=== PATIENT | male | born 1940 | race Caucasian/White ===

== ENCOUNTER → 2016-11-02 | Outpatient (CLI) | payer OTHER ==
[~2016-11-02] MED LIST: ATEN-173 PO; CARB25TA12 PO; CIPR-255 PO; CYAN10005 PO; DXM/4 PO; LISI20TA3 PO; POLY335025 PO; PSYL0.524 PO; SNM/25100 PO; TAMS0.4C38 PO; TAMS0.4C59 PO; [UNRECOGNIZED DRUG - CODE] PO
[2016-11-02 10:05] LABS: BASO % 0.8 %; BASO ABS # 0.08 K/uL (0-0.2); COMPLETE YES; EOS % 1.4 %; HEMATOCRIT 48.4 % (42-52); IG% 0.2 %; LYMPH % 13.9 %; MEAN CORPUSCULAR HEMOGLOBIN 32.2 pg (25-34); MEAN CORPUSCULAR HGB CONC 36.2 g/dl (32-36); MEAN PLATELET VOLUME 8.7 fL (7.4-10.4); MONO % 7.5 %; NEUT % 76.2 %; PLATELET COUNT 458 K/uL (130-400); RED BLOOD COUNT 5.44 M/uL (4.7-6.1)
[2016-11-02 10:31] LABS: ALT/SGPT 15 U/L (12-78); AST/SGOT 8 U/L (15-37); BLOOD UREA NITROGEN 23 mg/dl (7-18); BUN/CREATININE RATIO 20.7 (10-20); CALCIUM 9.1 mg/dl (8.5-10.1); CARBON DIOXIDE 29 mmol/L (21-32); CHLORIDE 109 mmol/L (98-107); GLUCOSE 103 mg/dl (70-99); POTASSIUM 4.2 mmol/L (3.5-5.1); SODIUM 145 mmol/L (136-145)
[2016-11-02 10:34] LABS: ALB/GLOB RATIO 1.3 (0.9-2); ALKALINE PHOSPHATASE 59 U/L (45-117); CHOLESTEROL 157 mg/dl (0-200); CHOLESTEROL/HDL RATIO 2.8; HDL CHOLESTEROL 57 mg/dl; LDL CHOLESTEROL CALCULATED 91 mg/dl; TRIGLYCERIDES 46 mg/dl (0-150); VERY LOW DENSITY LIPOPROT CALC 9 mg/dl
== END | disposition home or self-care (01) ==
LOC: C.LAB 09:27
PROVIDERS: ATTEND Nurse Practitioner Family
DX: I10 Essential (primary) hypertension (principal); K21.9 Gastro-esophageal reflux disease without esophagitis; J45.909 Unspecified asthma, uncomplicated; E88.9 Metabolic disorder, unspecified

== ENCOUNTER 2016-11-05 13:34 | Inpatient (IN) | payer OTHER ==
[~2016-11-05] VITALS: Ht 172.7 cm; Wt 64.0 kg
[~2016-11-05 13:34] MED LIST changes: -CARB25TA12 PO; -CIPR-255 PO; -DXM/4 PO; -SNM/25100 PO; -TAMS0.4C38 PO
[2016-11-05] MEDS ORDERED: SODIUM CHLORIDE 0.9% 1000ML 500 ML IV STA (13:55)
[2016-11-05] MEDS ORDERED: IBUPROFEN 600 MG TAB PO STA (13:55)
[2016-11-05] MEDS ORDERED: ACETAMINOPHEN 500 MG TAB PO STA (13:55)
--- NOTE | 2016-11-05 14:03 | EMERGENCY ROOM VISIT NOTE ---
History Report prepared by Ephraim: Yen Valentino Under the Supervision of: Dr. Helio Frias M.D. First contact with patient: 13:47 Chief Complaint: NEURO SYMPTOMS Stated Complaint: NUMBING/PAIN IN BOTH ARMS History of Present Illness The patient is a 76 year old male who presents to the Emergency Room with complaints of worsening bilateral arm numbness over the past week. He currently rates his discomfort as a 10/10 in severity. Per the patient's granddaughter, the patient's left arm has been numb for awhile, but over the last week his numbness worsened and he has noticed right arm numbness from his elbow to his fingers. She notes that the patient has complained of some bilateral leg numbness, but notes that he can still ambulate. The patient's granddaughter notes that the patient associates nausea and abdominal pain with his symptoms today. She denies the patient having any recent fall or trauma. The patient notes neck pain today and states that when he was younger he had small injuries to his neck. He denies any history of stroke or previous NC. The patient denies any shortness of breath or chest pain. The patient denies taking anything for his pain today. Source of History: patient, family (granddaughter) Onset: past week Position: arm (bilateral) Symptom Intensity: 10/10 Quality: numbness Timing: worsening Associated Symptoms: + abdominal pain, + nausea, + neck pain, + numbness ( bilateral leg), No SOB, No chest pain Review of Systems See HPI for pertinent positives & negatives. A total of 10 systems reviewed and were otherwise negative. Past Medical & Surgical Medical Problems: (1) Altered mental status (2) Enlarged prostate (3) Headache (4) HTN (hypertension) (5) Hypertensive urgency (6) Muscle weakness of right upper extremity (7) Prostate cancer (8) Right upper extremity numbness Family History Patient reports no known family medical history. Social History Smoking Status: Never Smoker Marital Status: single Housing Status: lives alone Occupation Status: retired Current/Historical Medications Scheduled Atenolol (Tenormin), 25 MG PO BID Cyanocobalamin (Vitamin B-12), 1,000 MCG PO DAILY Lisinopril (Prinivil), 20 MG PO BID Polyethylene Glycol 3350 (Miralax), Unknown Dose PO DAILY Psyllium (Metamucil), 5 CAP PO DAILY Tamsulosin Hcl (Flomax), 0.4 MG PO DAILY [Col-rite], 100 MG PO BID Allergies Coded Allergies: No Known Allergies (Verified , 06/08/16) Physical Exam Vital Signs Date Time Temp Pulse Resp B/P Pulse Ox O2 Delivery O2 Flow Rate FiO2 11/05/16 17:01 85 21 168/105 11/05/16 16:41 188/166 11/05/16 15:56 96 19 183/123 94 Room Air 11/05/16 15:37 199/120 11/05/16 15:30 70 14 200/107 94 Room Air 11/05/16 14:30 36.6 79 190/120 94 Room Air 11/05/16 14:14 87 11/05/16 13:38 36.8 103 20 163/97 95 Room Air Physical Exam GENERAL: Patient is in no acute distress. HEENT: No acute trauma, normocephalic atraumatic, mucous membranes moist, no nasal congestion, no scleral icterus. NECK: No stridor, no adenopathy, no meningismus, trachea is midline. LUNGS: Clear to auscultation bilaterally, no wheeze, no rhonchi, breath sounds equal. HEART: Mildly tachycardic with a regular rhythm. ABDOMEN: Soft, nontender, bowel sounds positive, no hernias, no peritonitis. EXTREMITIES: No cyanosis or edema, full range of motion of all the joints without pain or difficulty, no signs for acute trauma. Strong radial pulses in both upper extremities, there seems to be some difficulty spreading the fingers of the left hand, symptoms in his arms worsen with pressure over the median nerve and with extreme wrist extension. NEUROLOGIC: Oriented x 3, no acute motor or sensory deficits, no focal weakness. No pronator drift or cerebellar dysfunction. SKIN: No rash, no jaundice, no diaphoresis. Medical Decision & Procedures ER Provider Diagnostic Interpretation: X ray results and stated below per my interpretation and radiologist interpretation. Other radiology results and stated below per my review and radiologist interpretation: CT HEAD WITHOUT CONTRAST (CT) CLINICAL HISTORY: Altered mental status and weakness. Bilateral arm pain. COMPARISON STUDY: 06/08/2016 TECHNIQUE: Axial CT of the brain is performed from the vertex to the skull base. IV contrast was not administered for this examination. CT DOSE: FINDINGS: No intra or extra-axial mass lesions are visualized. There is no CT evidence of acute cortical infarction. There is no evidence of midline shift. There is no acute hemorrhage. No calvarial fractures are visualized. There are patchy white matter hypodensities likely on a small vessel basis. There is no evidence of pathologic ventricular dilatation. There is persistent opacification of a left-sided ethmoid air cell. IMPRESSION: No acute intracranial findings Electronically signed by: Cheko Larson M.D. 11/05/2016 2:33 PM Dictated Date/Time: 11/05/2016 2:31 PM CHEST ONE VIEW PORTABLE CLINICAL HISTORY: Altered mental status. Weakness. COMPARISON STUDY: 06/08/2016 FINDINGS: The heart is at the upper limits of normal in size. There is no failure. There is no focal pulmonary consolidation. No pleural effusions are visualized.[ IMPRESSION: No active disease in the chest. Electronically signed by: Cheko Larson M.D. 11/05/2016 2:14 PM Dictated Date/Time: 11/05/2016 2:[address] DOSE: 1034.76 mGy.cm HISTORY: Neck pain. arm pain, left more than right TECHNIQUE: Multiaxial CT images of the cervical spine were performed and reformatted in the sagittal and coronal plane without the use of contrast. COMPARISON: None. FINDINGS: No fractures. No subluxation. Prevertebral soft tissues and the C1-C2 interval are intact. No pneumothorax. A 1.3 cm right thyroid nodule. Severe disc space narrowing at C5-C6 and C6-C7 with small endplate osteophytes. Mild central canal narrowing at C6-C7 due to the posterior disc osteophyte complex. There is also severe right-sided neural foraminal narrowing at C6-C7 and moderate right-sided neural foraminal narrowing at C5-C6. This is due to the uncovertebral hypertrophy IMPRESSION: No fractures within the cervical spine. Degenerative changes at C5-C6 and C6-7 as described above. Electronically signed by: Diego Funes M.D. 11/05/2016 2:37 PM Dictated Date/Time: 11/05/2016 2:32 PM Laboratory Results 11/05/16 14:15 Red Blood Count 5.43, Mean Corpuscular Volume 90.4, Mean Corpuscular Hemoglobin 30.9, Mean Corpuscular Hemoglobin Concent 34.2, Mean Platelet Volume 8.6, Neutrophils (%) (Auto) 81.1, Lymphocytes (%) (Auto) 8.8, Monocytes (%) (Auto) 7.8, Eosinophils (%) (Auto) 1.6, Basophils (%) (Auto) 0.5, Neutrophils # (Auto) 8.29, Lymphocytes # (Auto) 0.90, Monocytes # (Auto) 0.80, Eosinophils # (Auto) 0.16, Basophils # (Auto) 0.05 11/05/16 14:15 Test 11/05/16 14:15 11/05/16 15:20 White Blood Count 10.22 K/uL (4.8-10.8) Red Blood Count 5.43 M/uL (4.7-6.1) Hemoglobin 16.8 g/dL (14.0-18.0) Hematocrit 49.1 % (42-52) Mean Corpuscular Volume 90.4 fL (80-100) Mean Corpuscular Hemoglobin 30.9 pg (25-34) Mean Corpuscular Hemoglobin Concent 34.2 g/dl (32-36) Platelet Count 452 K/uL (130-400) Mean Platelet Volume 8.6 fL (7.4-10.4) Neutrophils (%) (Auto) 81.1 % Lymphocytes (%) (Auto) 8.8 % Monocytes (%) (Auto) 7.8 % Eosinophils (%) (Auto) 1.6 % Basophils (%) (Auto) 0.5 % Neutrophils # (Auto) 8.29 K/uL (1.4-6.5) Lymphocytes # (Auto) 0.90 K/uL (1.2-3.4) Monocytes # (Auto) 0.80 K/uL (0.11-0.59) Eosinophils # (Auto) 0.16 K/uL (0-0.5) Basophils # (Auto) 0.05 K/uL (0-0.2) RDW Standard Deviation 47.3 fL (36.4-46.3) RDW Coefficient of Variation 14.3 % (11.5-14.5) Immature Granulocyte % (Auto) 0.2 % Immature Granulocyte # (Auto) 0.02 K/uL (0.00-0.02) Prothrombin Time 11.0 SECONDS (9.0-12.0) Prothromb Time International Ratio 1.0 (0.9-1.1) Activated Partial Thromboplast Time 32.5 SECONDS (21.0-31.0) Partial Thromboplastin Ratio 1.3 Anion Gap 6.0 mmol/L (3-11) Estimated GFR () 74.7 Estimated GFR (Non- 64.4 BUN/Creatinine Ratio 19.0 (10-20) Calcium Level 8.9 mg/dl (8.5-10.1) Magnesium Level 2.5 mg/dl (1.8-2.4) Total Bilirubin 0.7 mg/dl (0.2-1) Aspartate Amino Transf (AST/SGOT) 11 U/L (15-37) Alanine Aminotransferase (ALT/SGPT) 18 U/L (12-78) Alkaline Phosphatase 68 U/L (45-117) Troponin I < 0.015 ng/ml (0-0.045) Total Protein 6.8 gm/dl (6.4-8.2) Albumin 3.9 gm/dl (3.4-5.0) Globulin 2.9 gm/dl (2.5-4.0) Albumin/Globulin Ratio 1.3 (0.9-2) Thyroid Stimulating Hormone (TSH) 1.930 uIu/ml (0.300-4.500) Urine Color YELLOW Urine Appearance CLEAR (CLEAR) Urine pH 8.5 (4.5-7.5) Urine Specific Gray 1.013 (1.000-1.030) Urine Protein NEG (NEG) Urine Glucose (UA) NEG (NEG) Urine Ketones NEG (NEG) Urine Occult Blood NEG (NEG) Urine Nitrite NEG (NEG) Urine Bilirubin NEG (NEG) Urine Urobilinogen NEG (NEG) Urine Leukocyte Esterase NEG (NEG) Laboratory results reviewed by me. Medications Administered Medications (Trade) Dose Ordered Sig/Beau Route Start Time Stop Time Status Last Admin Dose Admin Sodium Chloride (Nss 1000ml) 500 ml @ 999 mls/hr Q31M STAT IV 11/05/16 13:55 11/05/16 14:25 DC 11/05/16 13:55 999 MLS/HR Acetaminophen (Tylenol Tab) 1,000 mg NOW STAT PO 11/05/16 13:55 11/05/16 13:58 DC 11/05/16 14:52 1,000 MG Hydralazine HCl (HydrALAZINE INJ) 10 mg NOW STAT IV 11/05/16 15:28 11/05/16 15:29 DC 11/05/16 15:35 10 MG Labetalol HCl (Normodyne IV) 20 mg NOW STAT IV 11/05/16 16:27 11/05/16 16:37 DC 11/05/16 16:27 20 MG ECG Indication: other (numbness) Rate (beats per minute): 84 Rhythm: normal sinus Findings: no acute ischemic change, no ectopy ED Course 1346: The patient was evaluated in room A12B. A complete history and physical exam was performed. 1355: Ordered Ibuprofen 600 mg PO, Tylenol Tab 1000 mg PO, Sodium Chloride 500 ml @ 999 mls/hr IV. 1528: Ordered Hydralazine HCl 10 mg IV. 1534: I reevaluated the patient and he is resting comfortably. I discussed the exam findings with him and his family and I discussed the treatment plan. They verbalized complete understanding and agreement. The patient will be evaluated for further treatment. 1545: I discussed the patients case with Dr. Aaron [facility]. He is going to evaluate the patient for further treatment Medical Decision The patient is a 76 year old male who presents to the ED with complaints of bilateral arm numbness. Differential diagnoses considered include carpal tunnel syndrome, nerve impingement, cervical disc disease, stroke, cardiac ischemia, dysrhythmia, anemia, electrolyte imbalance. There is no leukocytosis or concerning anemia. No significant electrolyte abnormality, kidney failure, hepatitis. The patient appears to be in a euthyroid state. There is no coagulopathy. EKG shows a sinus rhythm, no acute ischemia. Cardiac enzyme testing times one is not suggestive of acute cardiac injury. Chest film shows no mediastinal widening, pneumonia or pneumothorax. Brain CT shows no acute bleed or mass effect. C-spine CT does show arthritis and disc space narrowing with some foraminal narrowing. On exam, the patient did have some weakness in his left hand, especially his left ulnar nerve. He did not have any pronator drift or cerebellar dysfunction. He was able to ambulate without falling or being off balance. There was no facial droop. The patient was given oral Motrin and oral Tylenol for pain. He received IV saline. As his blood pressure kept climbing, he was given a dose of IV hydralazine. The patient may have nerve impingement. Certainly, stroke is a consideration as well. He is persistently hypertensive here and has now required some IV medications to try to help control his blood pressure. With his complaints and findings, admission/observation for further workup was felt warranted. I did speak with the patient and with his granddaughter. I spoke with case management. The on-call hospitalist was consulted. Consults Time Called: [id number] Consulting Physician: TAHIRA Fraga Returned Call: [phone] I discussed the patients case with TAHIRA Fraga. He is going to evaluate the patient for further treatment Impression Primary Impression: HTN (hypertension) Additional Impressions: Stroke-like symptoms Arm numbness Scribe Attestation The scribe's documentation has been prepared under my direction and personally reviewed by me in its entirety. I confirm that the note above accurately reflects all work, treatment, procedures, and medical decision making performed by me. Departure Information Dispostion Being Evaluated By Hospitalist Referrals Palmer Alicia III, CRNP (PCP) Problem Qualifiers
--- NOTE | 2016-11-05 14:16 | DIAGNOSTIC IMAGING REPORT ---
CHEST ONE VIEW PORTABLE CLINICAL HISTORY: Altered mental status. Weakness. COMPARISON STUDY: 06/08/2016 FINDINGS: The heart is at the upper limits of normal in size. There is no failure. There is no focal pulmonary consolidation. No pleural effusions are visualized.[ IMPRESSION: No active disease in the chest. Electronically signed by: Cheko Larson M.D. 11/05/2016 2:14 PM Dictated Date/Time: 11/05/2016 2:14 PM
[2016-11-05 14:27] LABS: BASO % 0.5 %; BASO ABS # 0.05 K/uL (0-0.2); COMPLETE YES; EOS % 1.6 %; HEMATOCRIT 49.1 % (42-52); IG% 0.2 %; LYMPH % 8.8 %; MEAN CELL VOLUME 90.4 fL (80-100); MEAN CORPUSCULAR HEMOGLOBIN 30.9 pg (25-34); MEAN CORPUSCULAR HGB CONC 34.2 g/dl (32-36); MEAN PLATELET VOLUME 8.6 fL (7.4-10.4); MONO % 7.8 %; NEUT % 81.1 %; PLATELET COUNT 452 K/uL (130-400); RED BLOOD COUNT 5.43 M/uL (4.7-6.1); WHITE BLOOD COUNT 10.22 K/uL (4.8-10.8)
--- NOTE | 2016-11-05 14:35 | DIAGNOSTIC IMAGING REPORT ---
CT HEAD WITHOUT CONTRAST (CT) CLINICAL HISTORY: Altered mental status and weakness. Bilateral arm pain. COMPARISON STUDY: 06/08/2016 TECHNIQUE: Axial CT of the brain is performed from the vertex to the skull base. IV contrast was not administered for this examination. CT DOSE: FINDINGS: No intra or extra-axial mass lesions are visualized. There is no CT evidence of acute cortical infarction. There is no evidence of midline shift. There is no acute hemorrhage. No calvarial fractures are visualized. There are patchy white matter hypodensities likely on a small vessel basis. There is no evidence of pathologic ventricular dilatation. There is persistent opacification of a left-sided ethmoid air cell. IMPRESSION: No acute intracranial findings Electronically signed by: Cheko Larson M.D. 11/05/2016 2:33 PM Dictated Date/Time: 11/05/2016 2:31 PM
[2016-11-05] MEDS ORDERED: TAMS0.4C38 PO (14:39)
--- NOTE | 2016-11-05 14:39 | DIAGNOSTIC IMAGING REPORT ---
CERVICAL SPINE CT CT DOSE: 1034.76 mGy.cm HISTORY: Neck pain. arm pain, left more than right TECHNIQUE: Multiaxial CT images of the cervical spine were performed and reformatted in the sagittal and coronal plane without the use of contrast. COMPARISON: None. FINDINGS: No fractures. No subluxation. Prevertebral soft tissues and the C1-C2 interval are intact. No pneumothorax. A 1.3 cm right thyroid nodule. Severe disc space narrowing at C5-C6 and C6-C7 with small endplate osteophytes. Mild central canal narrowing at C6-C7 due to the posterior disc osteophyte complex. There is also severe right-sided neural foraminal narrowing at C6-C7 and moderate right-sided neural foraminal narrowing at C5-C6. This is due to the uncovertebral hypertrophy IMPRESSION: No fractures within the cervical spine. Degenerative changes at C5-C6 and C6-7 as described above. Electronically signed by: Diego Funes M.D. 11/05/2016 2:37 PM Dictated Date/Time: 11/05/2016 2:32 PM
[2016-11-05 14:54] LABS: ALB/GLOB RATIO 1.3 (0.9-2); ALKALINE PHOSPHATASE 68 U/L (45-117); ALT/SGPT 18 U/L (12-78); AST/SGOT 11 U/L (15-37); BLOOD UREA NITROGEN 21 mg/dl (7-18); CALCIUM 8.9 mg/dl (8.5-10.1); CARBON DIOXIDE 28 mmol/L (21-32); CHLORIDE 110 mmol/L (98-107); GLUCOSE 138 mg/dl (70-99); MAGNESIUM 2.5 mg/dl (1.8-2.4); POTASSIUM 4.3 mmol/L (3.5-5.1); SODIUM 144 mmol/L (136-145)
[2016-11-05] MEDS ORDERED: HydrALAZINE HCL 20 MG/ML VIAL IV STA (15:28)
[2016-11-05 15:38] LABS: URINE APPEARANCE CLEAR (CLEAR); URINE BILIRUBIN NEG (NEG); URINE COLOR YELLOW; URINE NITRITE NEG (NEG); URINE PH 8.5 (4.5-7.5); URINE SPECIFIC GRAVITY 1.013 (1.000-1.030); UROBILINOGEN NEG (NEG); ZZUR CULT IF INDIC CLEAN CATCH NO
[2016-11-05 15:44] LABS: MANUAL MICROSCOPIC REQUIRED? NO; REVIEW REQ? NO
[2016-11-05] MEDS ORDERED: LABETALOL HCL IV 5 MG/ML 20ML IV STA (16:27)
[2016-11-05] MEDS ORDERED: ONDANSETRON INJ 2 MG/ML 2 ML VIAL IV PRN (17:30)
[2016-11-05] MEDS ORDERED: AMLODIPINE BESYLATE 5 MG TAB PO SCH (17:30)
--- NOTE | 2016-11-05 18:26 | History and Physical ---
History & Physical Date & Time of Service: Nov 05, 2016 at 16:17 Chief Complaint: Numbing/Pain In Both Arms Primary Care Physician: Palmer Alicia III, CRNP History of Present Illness Source: patient, family ([place]), clinic records, hospital records History taken with granddaughter then patient using medical lab technologist and his outpatient notes. 76 yo with Parkinson's disease presents with altered mental status, acute progressive motor and sensory loss in his right upper extremity starting in his hand over the last week and pain from elbow to finger tips. Today he also had nausea and vomiting with associated headache. He has chronic urinary incontinence and urgency which he puts down to his Hx of prostate cancer s/p external beam radiation. He complains of intermittent constipation requiring laxatives and frequently feels that he needs to have a bowel movement but is unable. In the ER he was noted to have elevated BP and treated with IV hydralazine 10 mg. On review of allscripts he was under the care of Dr Burleson for suspected Parkinson's disease and left arm numbness/weakness. Negative workup for left arm symptoms but apparently improve with physical therapy. Recommended he start on Sinemet in June although he refused at that time saying "he is just old". Past Medical/Surgical History Medical Problems: (1) Enlarged prostate Status: Resolved (2) HTN (hypertension) Status: Chronic (3) Prostate cancer Permanent Comment: Increased urinary symptoms and subsequent finding of elevated PSA Status post biopsies 01/25/2011 biopsy stage T2a Yann grade 3+3 Active surveillance Repeat biopsy 06/25/2012 biopsy positive [place] 3+3 biopsy stage T2b Status post completion of radiation therapy utilizing IMRT/IGRT completed 2012 received 7800 cGy Status: Resolved Family History Patient reports no known family medical history. Social History Smoking Status: Never Smoker Marital Status: single Housing status: lives with family (struggling to cope given lack of mobility issues) Occupational Status: retired Multi-Drug Resistant Organisms History of MDRO: No Allergies Coded Allergies: No Known Allergies (Verified , 06/08/16) Home Medications Scheduled Atenolol (Tenormin), 25 MG PO BID Cyanocobalamin (Vitamin B-12), 1,000 MCG PO DAILY Lisinopril (Prinivil), 20 MG PO BID Polyethylene Glycol 3350 (Miralax), Unknown Dose PO DAILY Psyllium (Metamucil), 5 CAP PO DAILY Tamsulosin Hcl (Flomax), 0.4 MG PO DAILY [Col-rite], 100 MG PO BID Physical Exam Vital Signs Date Time Temp Pulse Resp B/P Pulse Ox O2 Delivery O2 Flow Rate FiO2 11/05/16 15:56 96 19 183/123 94 Room Air 11/05/16 15:37 199/120 11/05/16 15:30 70 14 200/107 94 Room Air 11/05/16 14:30 36.6 79 190/120 94 Room Air 11/05/16 14:14 87 11/05/16 13:38 36.8 103 20 163/97 95 Room Air General Appearance: no apparent distress, + pertinent finding (appears malnourished) Head: normocephalic, atraumatic Eyes: EOMI, + pertinent finding Respiratory/Chest: chest non-tender, lungs clear, normal breath sounds, no respiratory distress, no accessory muscle use Cardiovascular: regular rate, rhythm, no murmur Abdomen/GI: normal bowel sounds, non tender, soft Back: no CVA tenderness Extremities/Musculoskelatal: no calf tenderness, normal capillary refill Skin: normal color, warm/dry, no rash NEUROLOGICALLY: Awake alert and oriented. Blank facies Cranial nerves: Chronic lateral gaze of right eye from previous foreign object in that eye with eyelid droop (since as per granddaughter) Left EOMI intact, left pupil reactive, no vision on right eye Denies facial numbness Expect for eyelid as previous mentioned no other facial droop Hearing not assessed uvula central tongue movements intact SCM TPZ intact Numbness of all of his tongue Appears to have move his limbs better when he is not concentrating Upper limbs: Mild increased tone in upper extremities b/l Left: (C5) shoulder abduction 3, (C6) elbow flex 4, (radial) wrist ext 3 (C7) elbow ext 4, (radial) wrist flex 3 (C8) finger flex 4, (T1, ulna) finger abduct 2, (median) thumb opposition 3 Right: (C5) shoulder abduction 3, (C6) elbow flex 4, (radial) wrist ext 4 (C7) elbow ext 4+, (radial) wrist flex 4 (C8) finger flex 4, (T1, ulna) finger abduct 3, (median) thumb opposition 3 Hyperreflexic biceps b/l C4-T1 sensation numbness worse on right compared with left. C4 pain distribution on neck rotation and flexion Lower limbs: Normal tone B/l hip flex 4, knee flex/ext 4+, Ankle dorsiflex/plantarflex 5 Plantars downgoing L2-S2 sensation intact b/l Speech: dysphonia present, no dysarthria (although language barrier makes this difficult to assess) Cerebellar - significant slowing of dysdiadochokinesia b/l, stooped shuffling gait Diagnostics Laboratory Results Results Past 24 Hours Test 11/05/16 14:15 11/05/16 15:20 Range/Units White Blood Count 10.22 4.8-10.8 K/uL Red Blood Count 5.43 4.7-6.1 M/uL Hemoglobin 16.8 14.0-18.0 g/dL Hematocrit 49.1 42-52 % Mean Corpuscular Volume 90.4 80-100 fL Mean Corpuscular Hemoglobin 30.9 25-34 pg Mean Corpuscular Hemoglobin Concent 34.2 32-36 g/dl Platelet Count 452 130-400 K/uL Mean Platelet Volume 8.6 7.4-10.4 fL Neutrophils (%) (Auto) 81.1 % Lymphocytes (%) (Auto) 8.8 % Monocytes (%) (Auto) 7.8 % Eosinophils (%) (Auto) 1.6 % Basophils (%) (Auto) 0.5 % Neutrophils # (Auto) 8.29 1.4-6.5 K/uL Lymphocytes # (Auto) 0.90 1.2-3.4 K/uL Monocytes # (Auto) 0.80 0.11-0.59 K/uL Eosinophils # (Auto) 0.16 0-0.5 K/uL Basophils # (Auto) 0.05 0-0.2 K/uL RDW Standard Deviation 47.3 36.4-46.3 fL RDW Coefficient of Variation 14.3 11.5-14.5 % Immature Granulocyte % (Auto) 0.2 % Immature Granulocyte # (Auto) 0.02 0.00-0.02 K/uL Sodium Level 144 136-145 mmol/L Potassium Level 4.3 3.5-5.1 mmol/L Chloride Level 110 98-107 mmol/L Carbon Dioxide Level 28 21-32 mmol/L Anion Gap 6.0 3-11 mmol/L Blood Urea Nitrogen 21 7-18 mg/dl Creatinine 1.10 0.60-1.40 mg/dl Estimated GFR () 74.7 Estimated GFR (Non- 64.4 BUN/Creatinine Ratio 19.0 10-20 Random Glucose 138 70-99 mg/dl Calcium Level 8.9 8.5-10.1 mg/dl Magnesium Level 2.5 1.8-2.4 mg/dl Total Bilirubin 0.7 0.2-1 mg/dl Aspartate Amino Transf (AST/SGOT) 11 15-37 U/L Alanine Aminotransferase (ALT/SGPT) 18 12-78 U/L Alkaline Phosphatase 68 45-117 U/L Troponin I < 0.015 0-0.045 ng/ml Total Protein 6.8 6.4-8.2 gm/dl Albumin 3.9 3.4-5.0 gm/dl Globulin 2.9 2.5-4.0 gm/dl Albumin/Globulin Ratio 1.3 0.9-2 Thyroid Stimulating Hormone (TSH) 1.930 0.300-4.500 uIu/ml Urine Color YELLOW Urine Appearance CLEAR CLEAR Urine pH 8.5 4.5-7.5 Urine Specific Curtis 1.013 1.000-1.030 Urine Protein NEG NEG Urine Glucose (UA) NEG NEG Urine Ketones NEG NEG Urine Occult Blood NEG NEG Urine Nitrite NEG NEG Urine Bilirubin NEG NEG Urine Urobilinogen NEG NEG Urine Leukocyte Esterase NEG NEG Diagnostic Radiology CERVICAL SPINE CT FINDINGS: No fractures. No subluxation. Prevertebral soft tissues and the C1-C2 interval are intact. No pneumothorax. A 1.3 cm right thyroid nodule. Severe disc space narrowing at C5-C6 and C6-C7 with small endplate osteophytes. Mild central canal narrowing at C6-C7 due to the posterior disc osteophyte complex. There is also severe right-sided neural foraminal narrowing at C6-C7 and moderate right-sided neural foraminal narrowing at C5-C6. This is due to the uncovertebral hypertrophy IMPRESSION: No fractures within the cervical spine. Degenerative changes at C5-C6 and C6-[address] HEAD WITHOUT CONTRAST (CT) No intra or extra-axial mass lesions are visualized. There is no CT evidence of acute cortical infarction. There is no evidence of midline shift. There is no acute hemorrhage. No calvarial fractures are visualized. There are patchy white matter hypodensities likely on a small vessel basis. There is no evidence of pathologic ventricular dilatation. There is persistent opacification of a left-sided ethmoid air cell. IMPRESSION: No acute intracranial findings CXR normal EKG Normal sinus rhythm Possible Left atrial enlargement Borderline ECG When compared with ECG of 08-JUN-2016 12:12, No significant change was found Impression Assessment and Plan 76 yo with Parkinson's disease presents with acute progressive motor and sensory loss in his right upper extremity starting in his hand over the last week and nausea, vomiting and headache over the past day. Altered mental state - appears almost back to his baseline as per granddaughter Hypertensive Urgency - possible cause of his headache, N&V - Hydralazine given by ER physician. Due to ongoing headache on lying down in the ER with BP 210/105 I added a stat dose of labetalol. - Add amlodipine 5 mg (give extra dose now), increase atenolol from 25 to 50mg BID, continue lisinopril 20 mg - will need orthostatics after BP controlled due to concurrent Parkinson's disease to make sure no orthostasis Right arm numbness and motor weakness - unclear etiology - CT shows - mild central canal narrowing C6-C7, severe right C6/7 neural foraminal narrowing at and moderate right C5-6 neural foraminal narrowing due to uncovertebral hypertrophy. - No acute findings on CT. We will initially get a MRI c-spine to assess his chronic radiculopathy and determine possible need for acute decompression.His acute right sided symptoms are similar to his chronic left sided symptoms which was investigated with a relatively normal EMG. His symptoms are also multiple levels not mentioned on the CT. Will consult neurology before getting an MRI brain given previous extensive negative workup I do not feel his symptoms are stroke related. - Consult neurology, Dr Burleson Parkinson's Disease - suspect above may be related to parkinson's. Not yet had trial Sinemet. - start Sinemet in the morning and reassess. - Consult neurology as above LLQ tenderness on examination with nausea and vomiting today - Rectal examination showed orange stool, negative for fecal Hemoccult blood - Abdo x-ray to assess for constipation higher up and obstruction. - NPO pending Abdo XR, if no sign of obstruction he can eat and drink as able with aspiration precautions. - Speech eval tomorrow Thyroid nodule incidental on CT c-spine - 1.5 cm right sided, will US to assess echogenicity and size further to determine need for FNA. - TSH normal Tongue numbness - chronic sialorrhea vs. oral thrush on examination, will treat with nystatin and oral mouth care VTE Prophylaxis - lovenox 40 mg SQ daily Disposition - admit to telemetry as may need IV beta blockers overnight and to assess for A fib although I do not feel this is stroke related at this time. Will need PT, OT and discharge planning due to concerns raised by his granddaughter they are not coping well at home. Level of Care Telemetry Resuscitation Status FULL RESUSCITATION VTE Prophylaxis VTE Risk Assessment Done? Y/N: Yes Risk Level: Moderate Given or contraindicated: Enoxaparin (Lovenox)SQ Additional Copies To Palmer Alicia III, CRNP Resident Tracking Resident Involvement: Resident Care Provided Care Provided: Adult Hospital Medicine
[2016-11-05 18:29] LABS: PARTIAL THROMBOPLASTIN RATIO 1.3
[2016-11-05 18:33] VITALS: BP 167/91; PULSE 74; TEMP 36.5; Ht 172.7 cm; Wt 64.0 kg
--- NOTE | 2016-11-05 19:07 | Progress Note ---
Progress Note Date of Service Nov 05, 2016. Progress Note Resident Physician Supervision Note: I interviewed and examined the patient. Discussed with Dr. Crane and agree with findings and plan as documented in the note. Any exceptions or clarifications are listed here: [None] please refer to actual H&P for further details on my exam, the patient has more weakness in left hand, muscle wasting found DTR to be hyper-reflexive both upper and lower extremities, 3/4 shuffled gain, no loss of balance seen - Bilateral upper extremity weakness and numbness, hyper-reflexia, muscle wasting left hand certainly feel that Cervical spine MRI is warranted to look for a cause of these findings consult neurology to see tomorrow for further recommendations - Hypertensive urgency: use Labetalol PRN continue lisinopril 20mg increase Atenolol to 50mg BID add Norvasc 5mg daily follow BP for appropriate response Documented By: Fabiano Aaron
[2016-11-05 20:00] VITALS: O2SAT 94
[2016-11-05] MEDS: ACETAMINOPHEN 325 MG TAB PO SCH (20:07)
[2016-11-05] MEDS: LISINOPRIL 20 MG TAB PO SCH (20:47)
[2016-11-05] MEDS: ENOXAPARIN 40 MG/0.4 ML SYR SC SCH (20:47)
[2016-11-05 20:57] VITALS: BP 108/67; PULSE 65; O2SAT 97
[2016-11-05] MEDS: NYSTATIN SUSP 500,000 U/5 ML UDC PO SCH (21:00)
--- NOTE | 2016-11-05 22:04 | DIAGNOSTIC IMAGING REPORT ---
ULTRASOUND OF THE THYROID GLAND CLINICAL HISTORY: Thyroid nodule. COMPARISON STUDY: CT scan of cervical spine dated 11/05/2016. TECHNIQUE: Real-time, grayscale, and color flow sonography of the thyroid gland is performed utilizing a high-frequency linear transducer. Images are reviewed in the transverse and longitudinal planes. FINDINGS: Right lobe: The right lobe of the thyroid gland is normal in size and homogeneous in echotexture, measuring 5.0 x 2.2 x 2.0 cm. An almost completely cystic nodule in the midpole measures 1.5 x 1.2 x 1.3 cm. Left lobe: The left lobe of the thyroid gland is normal in size and homogeneous in echotexture, measuring 5.0 x 2.1 x 1.8 cm. Isthmus: The thyroid isthmus is normal in appearance measuring 0.5 cm in AP diameter. IMPRESSION: 1. The thyroid gland is normal in size and echotexture. 2. A 1.5 cm nodule in the right thyroid lobe is nearly completely cystic. A 6-12 month sonographic follow-up is recommended for reassessment. Electronically signed by: Helio Francis M.D. 11/05/2016 10:02 PM Dictated Date/Time: 11/05/2016 9:59 PM
--- NOTE | 2016-11-05 22:28 | DIAGNOSTIC IMAGING REPORT ---
ABDOMEN 2 VIEWS CLINICAL HISTORY: Generalized abdominal pain. FINDINGS: Supine and erect abdominal radiograph are correlated with abdominal CT dated 09/30/2015. There is a nonobstructed abdominal bowel gas pattern noting moderate colonic fecal retention. No evidence of intraperitoneal free air is seen. Numerous phleboliths are identified in the pelvis. Surgical clips are noted in the prostate. The skeletal structures are osteopenic. Mild spondylotic change is noted in the lumbosacral spine. The lung bases are clear as imaged. IMPRESSION: Nonobstructed abdominal bowel gas pattern noting moderate constipation. Electronically signed by: Helio Francis M.D. 11/05/2016 10:26 PM Dictated Date/Time: 11/05/2016 10:25 PM
[2016-11-05] MEDS: SODIUM CHLORIDE 0.45% 1000ML 1,000 ML IV SCH (22:36)
[2016-11-05 23:17] VITALS: BP 158/83; PULSE 69; TEMP 36.6; O2SAT 94
--- NOTE | 2016-11-05 23:18 | DIAGNOSTIC IMAGING REPORT ---
MRI OF THE CERVICAL SPINE WITHOUT IV CONTRAST CLINICAL HISTORY: Cervical radiculopathy. COMPARISON STUDY: CT scan of the cervical spine performed the same day 11/05/2016. TECHNIQUE: MRI of the cervical spine is performed utilizing various T1 and T2-weighted sequences in the axial and sagittal planes. IV contrast was not administered for this examination. The examination is modestly degraded by motion artifact. FINDINGS: Cervical spine: Vertebral body height and alignment are maintained throughout the cervical spine. Marrow signal intensity is slightly heterogeneous. No destructive bony lesion is seen. The atlantodental articulation appears preserved. The spinous processes are intact. Chronic degenerative endplate changes noted at C5-C6. Tiny hemangiomas are suspected in the bodies of T1 and T2. Small anterior osteophytes are seen throughout. Intervertebral discs: There is mild degenerative disc desiccation and loss of height throughout the cervical spine. Loss of height is moderate at C5-C6 and C6-C7. Spinal cord: The cervical spinal cord is normal in morphology and signal intensity. C2-C3: A small posterior disc osteophyte complex effaces the ventral subarachnoid space. The neural foramina are patent. C3-C4: A posterior disc osteophyte complex abuts the ventral cord. Uncovertebral and facet arthropathy cause mild left greater than right neural foraminal stenosis. C4-C5: A posterior disc osteophyte complex abuts the ventral cord. Uncovertebral and facet arthropathy cause [id number] left greater than right neural foraminal stenosis. C5-C6: A posterior disc osteophyte complex effaces the ventral subarachnoid space. Uncovertebral and facet arthropathy causes moderate right greater than left neural foraminal stenosis. C6-C7: A posterior disc osteophyte complex eccentric to the right effaces the ventral subarachnoid space. This causes severe right-sided neural foraminal stenosis. The left neural foramen appears patent. C7-T1: Unremarkable. Soft tissues: The prevertebral and paraspinous soft tissues are within normal limits. Brain parenchyma: Partially imaged brain parenchyma at the skull base is normal as visualized. Mild mucosal thickening is seen within the maxillary antra. IMPRESSION: 1. The cervical spinal cord is normal in morphology and signal intensity. 2. Mild cervical spondylosis as detailed above. See above discussion for detailed level by level analysis. 3. No destructive bony lesion is seen. Dictated: 11/05/2016 9:46 PM Transcribed: 11/05/2016 11:17 PM [facility] Electronically signed by: Helio Francis M.D. 11/05/2016 11:22 PM Dictated Date/Time: 11/05/2016 9:46 PM
[2016-11-06] VITALS (10 sets, daily range): BP systolic 114–172; BP diastolic 68–93; PULSE 56–76; TEMP 36.2–37; O2SAT 92–96
[2016-11-06] MEDS ORDERED: POLYETHYLENE (MIRALAX) 17 GM PACK PO STA (00:07)
[2016-11-06 05:20] LABS: HEMATOCRIT 46.2 % (42-52); MEAN CELL VOLUME 91.8 fL (80-100); MEAN CORPUSCULAR HEMOGLOBIN 31.2 pg (25-34); MEAN PLATELET VOLUME 8.5 fL (7.4-10.4); PLATELET COUNT 372 K/uL (130-400); RED BLOOD COUNT 5.03 M/uL (4.7-6.1); WHITE BLOOD COUNT 8.22 K/uL (4.8-10.8)
[2016-11-06 05:46] LABS: ALT/SGPT 20 U/L (12-78); AST/SGOT 13 U/L (15-37); BLOOD UREA NITROGEN 18 mg/dl (7-18); BUN/CREATININE RATIO 18.2 (10-20); CALCIUM 8.3 mg/dl (8.5-10.1); CARBON DIOXIDE 28 mmol/L (21-32); CHLORIDE 110 mmol/L (98-107); GLUCOSE 97 mg/dl (70-99); POTASSIUM 3.8 mmol/L (3.5-5.1); SODIUM 144 mmol/L (136-145)
[2016-11-06 05:59] LABS: ALB/GLOB RATIO 1.3 (0.9-2); ALKALINE PHOSPHATASE 47 U/L (45-117); C-REACTIVE PROTEIN < 0.29 mg/dl (0-0.29)
[2016-11-06] MEDS: ACETAMINOPHEN 325 MG TAB PO SCH ×4 (08:06→20:00)
[2016-11-06] MEDS: SODIUM CHLORIDE 0.45% 1000ML 1,000 ML IV SCH (08:06)
[2016-11-06] MEDS: CYANOCOBALAMIN 500 MCG TAB (VIT B-12) PO SCH (08:07)
[2016-11-06] MEDS: TAMSULOSIN HCL 0.4 MG CAP PO SCH (08:07)
[2016-11-06] MEDS: CARBIDOPA/LEVODOPA 25/100MG TAB PO SCH ×3 (08:07→20:49)
[2016-11-06] MEDS: NYSTATIN SUSP 500,000 U/5 ML UDC PO SCH ×4 (08:07→20:53)
[2016-11-06] MEDS: LISINOPRIL 20 MG TAB PO SCH ×2 (08:11→20:50)
--- NOTE | 2016-11-06 08:36 | Family Medicine Progress Note ---
Progress Note Date of Service Nov 06, 2016. Subjective Pt evaluation today including: conversation w/ patient, physical exam, chart review, lab review, review of studies, review of inpatient medication list Voiding: incontinence No acute issues overnight. All Other Systems: Reviewed and Negative Medications Current Inpatient Medications Medications (Trade) Dose Ordered Sig/Beau Route Start Time Stop Time Status Last Admin Dose Admin Enoxaparin Sodium (Lovenox Inj) 40 mg HS SC 11/05/16 21:00 12/05/16 20:59 11/05/16 20:47 40 MG Acetaminophen (Tylenol Tab) 650 mg Q4HWA PO 11/05/16 20:00 12/05/16 19:59 11/06/16 08:06 650 MG Ondansetron HCl (Zofran Inj) 4 mg Q6H PRN IV 11/05/16 17:30 12/05/16 17:29 Atenolol (Tenormin Tab) 50 mg BID PO 11/05/16 21:00 12/05/16 20:59 11/06/16 08:09 50 MG Cyanocobalamin (Vitamin B-12 Tab) 1,000 mcg DAILY PO 11/06/16 09:00 12/06/16 08:59 11/06/16 08:07 1,000 MCG Lisinopril (Zestril Tab) 20 mg BID PO 11/05/16 21:00 12/05/16 20:59 11/06/16 08:11 20 MG Tamsulosin HCl (Flomax Cap) 0.4 mg DAILY PO 11/06/16 09:00 12/06/16 08:59 11/06/16 08:07 0.4 MG Amlodipine Besylate (Norvasc Tab) 5 mg QAM PO 11/06/16 09:00 12/06/16 08:59 11/06/16 08:11 5 MG Nystatin (Mycostatin Susp) 5 ml QID PO 11/05/16 21:00 11/15/16 20:59 11/06/16 08:07 5 ML Carbidopa/ Levodopa 1 tab 1 tab TID PO 11/06/16 09:00 12/06/16 08:59 11/06/16 08:07 1 TAB Sodium Chloride (1/2 Nss 1000ml) 1,000 ml @ 100 mls/hr Q10H IV 11/05/16 22:15 12/05/16 22:14 11/06/16 08:06 100 MLS/HR Polyethylene (Miralax Powder Packet) 17 gm DAILY PO 11/06/16 09:00 12/06/16 08:59 11/06/16 08:07 17 GM Objective Vital Signs Date Time Temp Pulse Resp B/P Pulse Ox O2 Delivery O2 Flow Rate FiO2 11/06/16 07:41 37.0 76 20 168/93 95 11/06/16 04:47 36.6 62 18 126/71 96 Room Air 11/06/16 03:57 Room Air 11/06/16 00:00 Room Air 11/05/16 23:17 36.6 69 18 158/83 94 Room Air 11/05/16 20:57 65 18 108/67 97 11/05/16 20:00 94 Room Air 11/05/16 18:33 36.5 74 20 167/91 Room Air 11/05/16 17:58 36.6 85 21 177/110 94 11/05/16 17:30 177/110 94 Room Air 11/05/16 17:01 85 21 168/105 11/05/16 16:41 188/166 11/05/16 15:56 96 19 183/123 94 Room Air 11/05/16 15:37 199/120 11/05/16 15:30 70 14 200/107 94 Room Air 11/05/16 14:30 36.6 79 190/120 94 Room Air 11/05/16 14:14 87 11/05/16 13:38 36.8 103 20 163/97 95 Room Air Physical Exam General Appearance: WD/WN, no apparent distress Eyes: + pertinent finding (chronic right eye blindness) Neck: supple, no JVD Respiratory/Chest: lungs clear, normal breath sounds, no respiratory distress, no accessory muscle use Cardiovascular: regular rate, rhythm, no murmur Abdomen: normal bowel sounds, non tender, soft Extremities: no calf tenderness Neurologic/Psychiatric: alert, oriented x 3, + pertinent finding (resting tremor noted on left hand, muslce wasting of intrisic muscles, grossly similar power to H&P examination) Skin: normal color, warm/dry, no rash Laboratory Results 11/06/16 05:08 11/06/16 05:08 Test 4/18/17 14:15 11/05/16 15:20 11/06/16 05:08 Immature Granulocyte % (Auto) 0.2 % White Blood Count 10.22 K/uL (4.8-10.8) Red Blood Count 5.43 M/uL (4.7-6.1) 5.03 M/uL (4.7-6.1) Hemoglobin 16.8 g/dL (14.0-18.0) Hematocrit 49.1 % (42-52) Mean Corpuscular Volume 90.4 fL (80-100) 91.8 fL (80-100) Mean Corpuscular Hemoglobin 30.9 pg (25-34) 31.2 pg (25-34) Mean Corpuscular Hemoglobin Concent 34.2 g/dl (32-36) 34.0 g/dl (32-36) Platelet Count 452 K/uL (130-400) Mean Platelet Volume 8.6 fL (7.4-10.4) 8.5 fL (7.4-10.4) Neutrophils (%) (Auto) 81.1 % Lymphocytes (%) (Auto) 8.8 % Monocytes (%) (Auto) 7.8 % Eosinophils (%) (Auto) 1.6 % Basophils (%) (Auto) 0.5 % Neutrophils # (Auto) 8.29 K/uL (1.4-6.5) Lymphocytes # (Auto) 0.90 K/uL (1.2-3.4) Monocytes # (Auto) 0.80 K/uL (0.11-0.59) Eosinophils # (Auto) 0.16 K/uL (0-0.5) Basophils # (Auto) 0.05 K/uL (0-0.2) Immature Granulocyte # (Auto) 0.02 K/uL (0.00-0.02) Prothrombin Time 11.0 SECONDS (9.0-12.0) Prothromb Time International Ratio 1.0 (0.9-1.1) Activated Partial Thromboplast Time 32.5 SECONDS (21.0-31.0) Partial Thromboplastin Ratio 1.3 Magnesium Level 2.5 mg/dl (1.8-2.4) Troponin I < 0.015 ng/ml (0-0.045) Thyroid Stimulating Hormone (TSH) 1.930 uIu/ml (0.300-4.500) Urine Color YELLOW Urine Appearance CLEAR (CLEAR) Urine pH 8.5 (4.5-7.5) Urine Specific [place] 1.013 (1.000-1.030) Urine Protein NEG (NEG) Urine Glucose (UA) NEG (NEG) Urine Ketones NEG (NEG) Urine Occult Blood NEG (NEG) Urine Nitrite NEG (NEG) Urine Bilirubin NEG (NEG) Urine Urobilinogen NEG (NEG) Urine Leukocyte Esterase NEG (NEG) RDW Standard Deviation 48.9 fL (36.4-46.3) RDW Coefficient of Variation 14.5 % (11.5-14.5) Erythrocyte Sedimentation Rate 2 mm/hr (0-14) Anion Gap 6.0 mmol/L (3-11) Est Creatinine Clear Calc Drug Dose 50.4 ml/min Estimated GFR () 83.8 Estimated GFR (Non- 72.3 BUN/Creatinine Ratio 18.2 (10-20) Calcium Level 8.3 mg/dl (8.5-10.1) Total Bilirubin 1.1 mg/dl (0.2-1) Aspartate Amino Transf (AST/SGOT) 13 U/L (15-37) Alanine Aminotransferase (ALT/SGPT) 20 U/L (12-78) Alkaline Phosphatase 47 U/L (45-117) C-Reactive Protein < 0.29 mg/dl (0-0.29) Total Protein 5.9 gm/dl (6.4-8.2) Albumin 3.3 gm/dl (3.4-5.0) Globulin 2.6 gm/dl (2.5-4.0) Albumin/Globulin Ratio 1.3 (0.9-2) Assessment and Plan 76 yo with Parkinson's disease presents with acute progressive motor and sensory loss in his right upper extremity starting in his hand over the last week and nausea, vomiting and headache for 1 day. Hypertensive encephalopathy resolved Hypertensive Urgency - Continue addition of amlodipine 5mg with increased atenolol 50mg BID, continue lisinopril 20 mg - orthostatics Right arm numbness and motor weakness - suspected multilevel cervical radiculopathy made acutely worse rom lack of movements from parkinsons disease - will trial decadron to reduce any inflammation present given acute nature - PT - appreciate neurology recommendations B12, + lyme + MRI brain. EMG and nerve conduction testing as outpatient Parkinson's Disease - suspect above may be related to parkinson's. Not yet had trial Sinemet. - started Sinemet this morning and will reassess later in the day - appreciate neurology recommendations - speech eval, soft dental diet, aspiration precautions Constipation - no nausea or vomiting currently, no obstruction on CT Incidental cystic thyroid nodule - TSH normal - O/P follow up but unlikely will ever be of clinical relevance Tongue numbness - chronic sialorrhea vs. oral thrush on examination, continue nystatin VTE Prophylaxis - lovenox 40 mg SQ daily Disposition - PT/OT/discharge planning, recommend rehabilitation Resident Physician Supervision Note: I interviewed and examined the patient. Discussed with Dr. Crane and agree with findings and plan as documented in the note. Any exceptions or clarifications are listed here: None Documented By: Pedro Luis Sinclair arm numbness and weakness. mental status seems to be back to baseline vitals noted, nad, breathing unlabored. no pallor or icterus. good customer service sales associate strength at least 4+/5 b/l R maybe sl > L arm numbness and weakness - on review of films, appears highly likely lower cervical radiculopathy. trial of steroids + PT, once out of rehab would strongly consider eval for decompression. if failing or continues to show progression then would consider surgical eval. altered mental status - likely hypertensive urgency - improved. continue current BP regimen and titrate otherwise as above
[2016-11-06] MEDS ORDERED: POLYETHYLENE (MIRALAX) 17 GM PACK PO SCH (09:00)
[2016-11-06] MEDS ORDERED: CARBIDOPA/LEVODOPA 10/100MG TAB PO SCH (09:00)
[2016-11-06] MEDS ORDERED: AMLODIPINE BESYLATE 5 MG TAB PO SCH (09:00)
--- NOTE | 2016-11-06 09:14 | Clinical Documentation Query ---
CLINICAL DOCUMENTATION QUERY Dr. BELCHER, In your clinical opinion is this patient being managed for: ( x ) Hypertensive encephalopathy, POA ( ) Other explanation of clinical findings (Please Explain) ( ) Unable to determine (Please Define) ( ) Need to Discuss ( ) Not Agree The medical record reflects the following clinical findings, treatment, and risk factors. Clinical Indicators: 76 yo male presenting with altered mental status, acute progressive motor and sensory loss in his right upper extremity, nausea and vomiting with associated headache. CT head without acute findings. Presenting BP 163/97 with a max range of 177-200/105-120. Treatment: tele monitoring, neurology consult, neuro checks, start amlodipine with stat dose, increase atenolol dose, continue lisinopril, IV hydralazine and IV labetalol Risk Factors: age, HTN, Parkinson's disease Hypertensive Encephalopathy What is it? Hypertensive encephalopathy is a complication of hypertension.; it is a diffuse dysfunction of the brain due to increased intracranial pressure from elevated blood pressure Who's at Risk? Individuals with hypertension; the hypertension may be essential or due to chronic renal disease, acute glomerulonephritis, acute toxemia of , pheochromocytoma, or other causes. What are the Clinical Indicators? In this acute syndrome, severe hypertension is associated with headache, nausea, vomiting, convulsions, confusion, stupor, and eventual coma. Other clinical indicators include vision disturbances, hyperventilation, and epistaxis. Retinal hemorrhages and papilledema may occur; MRI of the brain often reveals a pattern of (reversible) cerebral edema occurring in the occiput and frontal areas of the brain in late or untreated cases. What is the Treatment Regimen? Emergent treatment for the elevated blood pressure i.e.: IV antihypertensives, 02 support, telemetry, CT of the head, neuro checks; lowering the blood pressure reverses the process, but stroke can occur, especially if blood pressure is lowered too rapidly Please clarify and document your clinical opinion in the progress notes and discharge summary. Terms such as "probable", "suspected", "likely", "questionable", "possible", or "still to be ruled out" are acceptable. IF IN AGREEMENT, YOU MUST DOCUMENT ABOVE DIAGNOSTIC STATEMENT IN DAILY PROGRESS NOTES AND DISCHARGE SUMMARY. This document is not part of the patient's record. Thank You, Jana Romero RN [phone]
--- NOTE | 2016-11-06 09:31 | Neurology Consultation ---
Neurology Consultation Date of Consultation: Nov 06, 2016. Attending Physician: Pedro Luis Sinclair D.O. Primary Care Physician: Palmer Alicia III, CRNP Reason for Consultation: Parkinsons, RUE/LUE numbness and weakness History of Present Illness Source: patient, clinic records, hospital records Mr Matt is a 76 year old right-handed male with long-standing left upper extremity weakness (previously seen by Dr Burleson in clinic), history of prostate cancer (s/p external beam radiation therapy, with stable/negative PSA's ), and hypertension who presented 1 day ago with altered mental status, headache , nausea, vomiting, and found to be in hypertensive urgency. There was concern the patient may have Parkinson's Disease so Neurology was consulted. There is a language barrier, as the patient speaks Faroese, but is able to communicate somewhat in Sinhala. He reports he has chronic pain in the right arm , mainly in the forearm, and left arm sometimes, and both legs. He reports he has noticed drooling recently. He says his tongue bothers him. He denies headache, nausea, and vomiting today. He ate breakfast well. He presented to the ED with altered mental status. He was found to be hypertensive and was given hydralazine and labetalol. Today his BP has improved. He had an MRI of the cervical spine which showed mild cervical spondylosis. Currently, he is awake, alert and oriented. On review of clinic records, in May 2016 he had an EMG of the L upper arm which was normal. He saw Dr Burleson in June 2016. He had refused being on Sinemet at that time (though now he agrees) for idiopathic Parkinson's and was advised to continue getting physical therapy. His last MRI was February 2016. Past Medical/Surgical History Medical Problems: (1) Arm numbness Status: Acute (2) Chest pain Status: Acute (3) Headache Status: Acute (4) HTN (hypertension) Status: Chronic (5) Nausea Status: Acute (6) Stroke-like symptoms Status: Acute Family History No pertinent FHx Social History Smoking Status: Unknown if ever smoked Marital Status: single Housing Status: lives with family (Unsure if family is coping with his immobilitty.) Occupation Status: retired Allergies Coded Allergies: No Known Allergies (Verified , 06/08/16) Current Inpatient Medications Current Inpatient Medications Medications (Trade) Dose Ordered Sig/Beau Route Start Time Stop Time Status Last Admin Dose Admin Enoxaparin Sodium (Lovenox Inj) 40 mg HS SC 11/05/16 21:00 12/05/16 20:59 11/05/16 20:47 40 MG Acetaminophen (Tylenol Tab) 650 mg Q4HWA PO 11/05/16 20:00 12/05/16 19:59 11/06/16 08:06 650 MG Ondansetron HCl (Zofran Inj) 4 mg Q6H PRN IV 11/05/16 17:30 12/05/16 17:29 Atenolol (Tenormin Tab) 50 mg BID PO 11/05/16 21:00 12/05/16 20:59 11/06/16 08:09 50 MG Cyanocobalamin (Vitamin B-12 Tab) 1,000 mcg DAILY PO 11/06/16 09:00 12/06/16 08:59 11/06/16 08:07 1,000 MCG Lisinopril (Zestril Tab) 20 mg BID PO 11/05/16 21:00 12/05/16 20:59 11/06/16 08:11 20 MG Tamsulosin HCl (Flomax Cap) 0.4 mg DAILY PO 11/06/16 09:00 12/06/16 08:59 11/06/16 08:07 0.4 MG Amlodipine Besylate (Norvasc Tab) 5 mg QAM PO 11/06/16 09:00 12/06/16 08:59 11/06/16 08:11 5 MG Nystatin (Mycostatin Susp) 5 ml QID PO 11/05/16 21:00 11/15/16 20:59 11/06/16 08:07 5 ML Carbidopa/Levodopa (Sinemet 25/ 100MG Tab) 1 tab TID PO 11/06/16 09:00 12/06/16 08:59 11/06/16 08:07 1 TAB Polyethylene (Miralax Powder Packet) 17 gm DAILY PO 11/06/16 09:00 12/06/16 08:59 11/06/16 08:07 17 GM Polyethylene (Miralax Powder Packet) 17 gm Q2H PO 11/06/16 10:00 12/06/16 09:59 Review of Systems See HPI for pertinent positives & negatives. A total of 10 systems reviewed and were otherwise negative. Physical Exam Vital Signs (Past 24 Hrs): Date Time Temp Pulse Resp B/P Pulse Ox O2 Delivery O2 Flow Rate FiO2 11/06/16 08:15 95 11/06/16 08:15 95 Room Air 11/06/16 07:41 37.0 76 20 168/93 95 11/06/16 04:47 36.6 62 18 126/71 96 Room Air 11/06/16 03:57 Room Air 11/06/16 00:00 Room Air 11/05/16 23:17 36.6 69 18 158/83 94 Room Air 11/05/16 20:57 65 18 108/67 97 11/05/16 20:00 94 Room Air 11/05/16 18:33 36.5 74 20 167/91 Room Air 11/05/16 17:58 36.6 85 21 177/110 94 11/05/16 17:30 177/110 94 Room Air 11/05/16 17:01 85 21 168/105 11/05/16 16:41 188/166 11/05/16 15:56 96 19 183/123 94 Room Air 11/05/16 15:37 199/120 11/05/16 15:30 70 14 200/107 94 Room Air 11/05/16 14:30 36.6 79 190/120 94 Room Air 11/05/16 14:14 87 11/05/16 13:38 36.8 103 20 163/97 95 Room Air GENERAL: Awake, alert HENT: Normocephalic, atraumatic. Flat facies overall. Tongue has a slight tremor , but strength is intact. EYES: PERRL. Normal conjunctiva. Sclera non-icteric. Fundi normal. Right eye exotropia. NECK: Stiff. No nuchal rigidity. FROM. RESPIRATORY: CTA CARDIAC: RRR. Extremities warm and well perfused. ABDOMEN: Soft, non distended. No tenderness to palpation. No rebound or guarding. No masses. MUSCULOSKELETAL: Resting tremor in L forearm. Muscle wasting, in L thenar prominence it is more visible then R thenar prominence. EXTREMITIES: No edema. No discoloration. Gross motor strength 5/5 bilaterally. NEURO: Normal sensorium. No sensory or motor deficits noted. Speech slow. Cranial nerves two through 12 intact. No pronator drift. Slow, but normal/ negative for dysdiadochokinesia. GAIT: Stooped, short, shuffling steps. Requires two person assistance. SKIN: No rash or jaundice noted. LYMPH: No adenopathy. Laboratory Results Past 24 Hours: 11/06/16 05:08 11/06/16 05:08 Test 11/05/16 14:15 11/05/16 15:20 11/06/16 05:08 Immature Granulocyte % (Auto) 0.2 % White Blood Count 10.22 K/uL (4.8-10.8) Red Blood Count 5.43 M/uL (4.7-6.1) 5.03 M/uL (4.7-6.1) Hemoglobin 16.8 g/dL (14.0-18.0) Hematocrit 49.1 % (42-52) Mean Corpuscular Volume 90.4 fL (80-100) 91.8 fL (80-100) Mean Corpuscular Hemoglobin 30.9 pg (25-34) 31.2 pg (25-34) Mean Corpuscular Hemoglobin Concent 34.2 g/dl (32-36) 34.0 g/dl (32-36) Platelet Count 452 K/uL (130-400) Mean Platelet Volume 8.6 fL (7.4-10.4) 8.5 fL (7.4-10.4) Neutrophils (%) (Auto) 81.1 % Lymphocytes (%) (Auto) 8.8 % Monocytes (%) (Auto) 7.8 % Eosinophils (%) (Auto) 1.6 % Basophils (%) (Auto) 0.5 % Neutrophils # (Auto) 8.29 K/uL (1.4-6.5) Lymphocytes # (Auto) 0.90 K/uL (1.2-3.4) Monocytes # (Auto) 0.80 K/uL (0.11-0.59) Eosinophils # (Auto) 0.16 K/uL (0-0.5) Basophils # (Auto) 0.05 K/uL (0-0.2) Immature Granulocyte # (Auto) 0.02 K/uL (0.00-0.02) Prothrombin Time 11.0 SECONDS (9.0-12.0) Prothromb Time International Ratio 1.0 (0.9-1.1) Activated Partial Thromboplast Time 32.5 SECONDS (21.0-31.0) Partial Thromboplastin Ratio 1.3 Magnesium Level 2.5 mg/dl (1.8-2.4) Troponin I < 0.015 ng/ml (0-0.045) Thyroid Stimulating Hormone (TSH) 1.930 uIu/ml (0.300-4.500) Urine Color YELLOW Urine Appearance CLEAR (CLEAR) Urine pH 8.5 (4.5-7.5) Urine Specific [place] 1.013 (1.000-1.030) Urine Protein NEG (NEG) Urine Glucose (UA) NEG (NEG) Urine Ketones NEG (NEG) Urine Occult Blood NEG (NEG) Urine Nitrite NEG (NEG) Urine Bilirubin NEG (NEG) Urine Urobilinogen NEG (NEG) Urine Leukocyte Esterase NEG (NEG) RDW Standard Deviation 48.9 fL (36.4-46.3) RDW Coefficient of Variation 14.5 % (11.5-14.5) Erythrocyte Sedimentation Rate 2 mm/hr (0-14) Anion Gap 6.0 mmol/L (3-11) Est Creatinine Clear Calc Drug Dose 50.4 ml/min Estimated GFR () 83.8 Estimated GFR (Non- 72.3 BUN/Creatinine Ratio 18.2 (10-20) Calcium Level 8.3 mg/dl (8.5-10.1) Total Bilirubin 1.1 mg/dl (0.2-1) Aspartate Amino Transf (AST/SGOT) 13 U/L (15-37) Alanine Aminotransferase (ALT/SGPT) 20 U/L (12-78) Alkaline Phosphatase 47 U/L (45-117) C-Reactive Protein < 0.29 mg/dl (0-0.29) Total Protein 5.9 gm/dl (6.4-8.2) Albumin 3.3 gm/dl (3.4-5.0) Globulin 2.6 gm/dl (2.5-4.0) Albumin/Globulin Ratio 1.3 (0.9-2) Imaging CERVICAL SPINE CT IMPRESSION: No fractures within the cervical spine. Degenerative changes at C5-C6 and C6-[address] HEAD WITHOUT CONTRAST (CT) IMPRESSION: No acute intracranial findings CXR normal Impression 76 year old male with bradykinesia, resting tremor, stooped/shuffling gait, and flat facies - we agree the patient does have Parkinson's disease. Right upper extremity numbness requires further evaluation, which can be completed as an outpatient. Plan Recommendations: - Would check a Lyme / B12 level. - Would obtain a brain MRI to evaluate, as there has been a change in his function since last imaging. - We will obtain an EMG as an outpatient of the [facility]. This does not need to be done as an inpatient. - Agree with starting Sinemet 25/100mg. Would keep this dose for a week, and then increase if tolerated, which can be titrated as an outpatient. Side effects to monitor for would include hallucinations, dizziness upon standing, confusion, and dyskinesia. - Strongly recommend PT/OT eval and therapy. He may benefit from a rehab hospital stay after discharge. Thank you for allowing us to participate in the care of Mr Matt. These recommendations have been discussed with Dr Crane of the primary hospitalist service. We will continue to follow. I have reviewed the patients records, interviewed the patient, and performed a neurologic physical examination. I have reviewed the Resident's note and agree with her assessment, impressions, and plan. Patient has had some extremity numbness, weakness, and pain and has been followed by Dr. Burleson since April 2016. She also noted shuffling gait, increased tone, bradykinesia, and tremor. EMG study in May 2016 of the left upper extremity was unremarkable. Patient had MRI of the brain which showed extensive small vessel ischemia in February 2016. At that time MR angiography of the head was unremarkable and carotid ultrasound showed less than 50% stenosis of the internal carotid arteries bilaterally. Patient does have a history of prostate cancer in the past. On neurologic examination today, the patient has significant generalized bradykinesia and a masklike face. There is cogwheel rigidity of left greater than right arm and left greater than right leg. He has a mild resting tremor of the left hand. His right exotropia and pupil disturbance on the right secondary to previous injury. There is an early cataract formation on the left. He has decreased vision out of the right eye. Gait is very slow and stooped with normal arm swing and shuffling gait. Turns are very poor need the assistance of one. Patient strength is fairly symmetrical in the arms and legs with some atrophy distally, left slightly greater than right, hand. During this hospitalization, MRI of the cervical spine showed some cervical spondylosis and diffuse degenerative changes but no cord impingement. I reviewed these films. CT scan of the head was unremarkable as was a chest x-ray. CBC, sedimentation rate, TSH, chem profile were unremarkable. This patient has significant Parkinson's disease with all 4 cardinal features including gait disturbance, mild resting tremor on the left, and left greater than right rigidity. There is diffuse bradykinesia. -I agree with initiating Sinemet 25/103 times a day. We can titrate this further as an outpatient. Patient has some history of neck pain and upper extremity pain and weakness as well as numbness. He may have some radicular symptoms with an MRI of the cervical spine was largely unremarkable. EMG last fall was unremarkable on the left hand. -I would follow-up these problems as an outpatient and I see no need for additional testing in the hospital for these. Although there was some concern about encephalopathy on admission, he does not have any confusion or encephalopathy currently today. -Given his central nervous system condition plus limbs symptoms, we will obtain an MRI of the brain with and without contrast to compare to last February and Lyme antibody titers will be obtained as well. -The patient needs increase activity and significant physical therapy. -Consider rehabilitation hospital stay once stabilized here -Xander Slaughter MD Resident Tracking Resident Involvement: Resident Care Provided Care Provided: Adult Hospital Medicine (NEUROLOGY)
[2016-11-06] MEDS: POLYETHYLENE (MIRALAX) 17 GM PACK PO SCH ×6 (09:55→21:00)
[2016-11-06] MEDS ORDERED: GADAVIST IV PRN (12:30)
--- NOTE | 2016-11-06 12:38 | DIAGNOSTIC IMAGING REPORT ---
MRI OF THE BRAIN WITHOUT AND WITH IV CONTRAST CLINICAL HISTORY: Altered mental status. Headache. Hypertension since emergency. COMPARISON STUDY: 03/14/2016, CT scan of the head dated 11/05/2016 TECHNIQUE: MRI of the brain was performed from the vertex to the skull base utilizing various T1 and T2 weighted sequences. Following the IV administration of 6 mL of Gadavist contrast, additional enhanced images were obtained. FINDINGS: Sagittal T1, axial diffusion, proton density and T2 weighted axial, coronal FLAIR, and pre and post axial T1-weighted images were acquired. These were supplemented with post gadolinium coronal T1 weighted images. No intra or extra-axial mass lesions are visualized. Axial diffusion-weighted images reveal no evidence of acute or subacute infarction. There is no evidence of ventricular dilatation. Proton density T2-weighted and FLAIR images reveal an old lacunar infarct in the right cerebellar hemisphere. There are scattered foci of increased T2 signal, likely a small vessel basis and similar to the preceding study There are no abnormal flow voids. There is no evidence of pathologic enhancement. IMPRESSION: 1. No acute intracranial findings 2. No evidence of acute or subacute infarction 3. No evidence of intracranial mass 4. 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 Foci of increased T2 signal within the white matter likely on a small vessel basis Electronically signed by: Cheko Larson M.D. 11/06/2016 12:36 PM Dictated Date/Time: 11/06/2016 12:34 PM
[2016-11-06 15:22] LABS: LYME DISEASE AB IGG NEG (NEG)
[2016-11-06 15:25] LABS: LYME DISEASE AB IGM NEG (NEG)
[2016-11-06] MEDS ORDERED: NURSING VERBAL MED ORDER ONE (20:45)
[2016-11-06] MEDS: ENOXAPARIN 40 MG/0.4 ML SYR SC SCH (20:54)
[2016-11-06] MEDS ORDERED: ACETAMINOPHEN 325 MG TAB PO PRN (21:00)
[2016-11-07] VITALS (8 sets, daily range): BP systolic 114–167; BP diastolic 67–92; PULSE 52–73; TEMP 36.5–36.8; O2SAT 92–95
[2016-11-07] MEDS: NYSTATIN SUSP 500,000 U/5 ML UDC PO SCH ×2 (07:26→13:27)
[2016-11-07] MEDS: LISINOPRIL 20 MG TAB PO SCH (07:27)
[2016-11-07] MEDS: TAMSULOSIN HCL 0.4 MG CAP PO SCH (07:27)
[2016-11-07] MEDS: POLYETHYLENE (MIRALAX) 17 GM PACK PO SCH (07:28)
[2016-11-07] MEDS: CYANOCOBALAMIN 500 MCG TAB (VIT B-12) PO SCH (07:29)
[2016-11-07] MEDS: CARBIDOPA/LEVODOPA 25/100MG TAB PO SCH ×2 (07:29→13:27)
--- NOTE | 2016-11-07 08:01 | Neurology Progress Notes ---
Neurology Progress Note Date of Service Nov 07, 2016. Subjective Reported he felt well today. Denied any pain. Said he felt more steady on his feet. Lyme test negative. B12 Normal. Objective Date Time Temp Pulse Resp B/P Pulse Ox O2 Delivery O2 Flow Rate FiO2 11/07/16 07:24 36.8 59 18 167/92 94 11/07/16 04:05 Room Air 11/07/16 04:00 36.6 58 20 136/86 94 11/07/16 00:05 Room Air 11/07/16 00:03 36.8 52 20 114/67 95 Room Air 11/06/16 20:00 Room Air 11/06/16 20:00 Room Air 11/06/16 19:18 36.8 63 16 114/70 92 Room Air 11/06/16 16:00 94 Room Air 11/06/16 14:58 56 94 11/06/16 14:47 36.2 57 20 119/73 94 11/06/16 12:00 95 Room Air 11/06/16 11:28 36.5 60 20 130/81 96 11/06/16 09:57 168/92 172/82 128/68 11/06/16 08:15 95 11/06/16 08:15 95 Room Air Last 24 Hours Test 11/06/16 11:35 Vitamin B12 Level 1151 pg/mL Lyme Disease IgG Antibody NEG Lyme Disease IgM Antibody NEG Imaging: Brain MRI: IMPRESSION: 1. No acute intracranial findings 2. No evidence of acute or subacute infarction 3. No evidence of intracranial mass 4. 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 Foci of increased T2 signal within the white matter likely on a small vessel basis Exam: GENERAL: Awake, alert, well appearing, no distress HENT: Normocephalic, atraumatic. EYES: PERRL. Normal conjunctiva. Sclera non-icteric. Fundi normal. EOMI NECK: Supple. No nuchal rigidity. FROM. RESPIRATORY: CTA CARDIAC: RRR. Extremities warm and well perfused. MUSCULOSKELETAL: Unremarkable. EXTREMITIES: No edema. No discoloration. Gross motor strength 5/5 bilaterally. NEURO: Normal sensorium. Seems to be back at baseline. Steadier on feet than yesterday but still requires assistance of 1. Bradykinetic diffusely. Tremor in L arm less severe. SKIN: No rash or jaundice noted. LYMPH: No adenopathy. Current Inpatient Medications Medications (Trade) Dose Ordered Sig/Beau Route Start Time Stop Time Status Last Admin Dose Admin Enoxaparin Sodium (Lovenox Inj) 40 mg HS SC 11/05/16 21:00 12/05/16 20:59 11/06/16 20:54 40 MG Ondansetron HCl (Zofran Inj) 4 mg Q6H PRN IV 11/05/16 17:30 12/05/16 17:29 Cyanocobalamin (Vitamin B-12 Tab) 1,000 mcg DAILY PO 11/06/16 09:00 12/06/16 08:59 11/07/16 07:29 1,000 MCG Lisinopril (Zestril Tab) 20 mg BID PO 11/05/16 21:00 12/05/16 20:59 11/07/16 07:27 20 MG Tamsulosin HCl (Flomax Cap) 0.4 mg DAILY PO 11/06/16 09:00 12/06/16 08:59 11/07/16 07:27 0.4 MG Amlodipine Besylate (Norvasc Tab) 5 mg QAM PO 11/06/16 09:00 12/06/16 08:59 Future Hold 11/06/16 08:11 5 MG Nystatin (Mycostatin Susp) 5 ml QID PO 11/05/16 21:00 11/15/16 20:59 11/07/16 07:26 5 ML Carbidopa/Levodopa (Sinemet 25/ 100MG Tab) 1 tab TID PO 11/06/16 09:00 12/06/16 08:59 11/07/16 07:29 1 TAB Gadobutrol (Gadavist) 6 mmol UD PRN IV 11/06/16 12:30 11/10/16 12:29 Dexamethasone (Decadron Tab) 10 mg DAILY PO 11/07/16 09:00 12/07/16 08:59 11/07/16 07:26 10 MG Acetaminophen (Tylenol Tab) 650 mg Q4H PRN PO 11/06/16 21:00 12/06/16 20:59 Polyethylene (Miralax Powder Packet) 17 gm TID PO 11/06/16 21:00 12/06/16 20:59 Atenolol (Tenormin Tab) 25 mg BID PO 11/07/16 09:00 12/07/16 08:59 Impression 76 year old male with bradykinesia, resting tremor, stooped/shuffling gait, and flat facies - we agree the patient does have Parkinson's disease. Right upper extremity numbness requires further evaluation, which can be completed as an outpatient. Plan Recommendations: - Brain MRI normal, and Lyme/B12 normal as well. - We will obtain an EMG as an outpatient of the [facility]. This does not need to be done as an inpatient. - We recommend continuing Sinemet 25/100mg. Would keep this dose for a week, and then increase if tolerated, which can be titrated as an outpatient. Side effects to monitor for would include hallucinations, dizziness upon standing, confusion, and dyskinesia. - Strongly recommend PT/OT eval and therapy. He may benefit from a rehab hospital stay after discharge. Thank you for allowing us to participate in the care of Mr Matt. We will sign off for now. Please do not hesitate to contact us if any concerns arise. I have reviewed the patients records, interviewed the patient, and performed a neurologic physical examination. I have reviewed the Residents note and agree with her assessment, impressions, and plan. The MRI of the brain was unremarkable. There was no new stroke but he did have an old right cerebellar lacunar infarct and some scattered old nonspecific white matter ischemic changes. Laboratory Tests were unremarkable. He is awake and alert and I believe he is less rigid and slow today compared to yesterday. This patient has Parkinson's disease and we will continue with Sinemet at its current dose. He will follow-up with Dr. Burleson as an outpatient in neurology. I have no further neurologic testing or treatment recommendations to make at this time otherwise. Please contact me if I can be of further assistance. -Xander Slaughter MD Resident Tracking Resident Involvement: Resident Care Provided Care Provided: Adult [facility] Medicine (NEURO)
[2016-11-07] MEDS ORDERED: DEXAMETHASONE 4 MG TAB PO SCH (09:00)
--- NOTE | 2016-11-07 11:35 | Family Medicine Progress Note ---
Progress Note Date of Service Nov 07, 2016. Subjective Pt evaluation today including: conversation w/ patient, physical exam, chart review, lab review, review of studies, review of inpatient medication list Feeling much better since starting the sinemet. Movement much easier but still having some arm pain. Medications Current Inpatient Medications Medications (Trade) Dose Ordered Sig/Beau Route Start Time Stop Time Status Last Admin Dose Admin Enoxaparin Sodium (Lovenox Inj) 40 mg HS SC 11/05/16 21:00 12/05/16 20:59 11/06/16 20:54 40 MG Ondansetron HCl (Zofran Inj) 4 mg Q6H PRN IV 11/05/16 17:30 12/05/16 17:29 Cyanocobalamin (Vitamin B-12 Tab) 1,000 mcg DAILY PO 11/06/16 09:00 12/06/16 08:59 11/07/16 07:29 1,000 MCG Lisinopril (Zestril Tab) 20 mg BID PO 11/05/16 21:00 12/05/16 20:59 11/07/16 07:27 20 MG Tamsulosin HCl (Flomax Cap) 0.4 mg DAILY PO 11/06/16 09:00 12/06/16 08:59 11/07/16 07:27 0.4 MG Amlodipine Besylate (Norvasc Tab) 5 mg QAM PO 11/06/16 09:00 12/06/16 08:59 Future Hold 11/06/16 08:11 5 MG Nystatin (Mycostatin Susp) 5 ml QID PO 11/05/16 21:00 11/15/16 20:59 11/07/16 07:26 5 ML Carbidopa/Levodopa (Sinemet 25/ 100MG Tab) 1 tab TID PO 11/06/16 09:00 12/06/16 08:59 11/07/16 07:29 1 TAB Gadobutrol (Gadavist) 6 mmol UD PRN IV 11/06/16 12:30 11/10/16 12:29 Dexamethasone (Decadron Tab) 10 mg DAILY PO 11/07/16 09:00 12/07/16 08:59 11/07/16 07:26 10 MG Acetaminophen (Tylenol Tab) 650 mg Q4H PRN PO 11/06/16 21:00 12/06/16 20:59 Polyethylene (Miralax Powder Packet) 17 gm TID PO 11/06/16 21:00 12/06/16 20:59 Atenolol (Tenormin Tab) 25 mg BID PO 11/07/16 09:00 12/07/16 08:59 Objective Vital Signs Date Time Temp Pulse Resp B/P Pulse Ox O2 Delivery O2 Flow Rate FiO2 11/07/16 08:00 95 Room Air 11/07/16 07:24 36.8 59 18 167/92 94 11/07/16 04:05 Room Air 11/07/16 04:00 36.6 58 20 136/86 94 11/07/16 00:05 Room Air 11/07/16 00:03 36.8 52 20 114/67 95 Room Air 11/06/16 20:00 Room Air 11/06/16 20:00 Room Air 11/06/16 19:18 36.8 63 16 114/70 92 Room Air 11/06/16 16:00 94 Room Air 11/06/16 14:58 56 94 11/06/16 14:47 36.2 57 20 119/73 94 11/06/16 12:00 95 Room Air Physical Exam General Appearance: WD/WN, no apparent distress Respiratory/Chest: lungs clear, normal breath sounds, no respiratory distress, no accessory muscle use Cardiovascular: regular rate, rhythm, no murmur Abdomen: normal bowel sounds, non tender, soft Neurologic/Psychiatric: alert, + pertinent finding (improving arm numbness bilaterally, strength equal and good throughout upper limb, mild resting tremor still present) Skin: normal color, warm/dry, no rash Laboratory Results Test 11/06/16 11:35 Vitamin B12 Level 1151 pg/mL (211-911) Lyme Disease IgG Antibody NEG (NEG) Lyme Disease IgM Antibody NEG (NEG) Assessment and Plan 76 yo with Parkinson's disease presents with acute progressive motor and sensory loss in his right upper extremity starting in his hand over the last week and nausea, vomiting and headache for 1 day. Hypertensive encephalopathy resolved Hypertensive Urgency - Continue addition of amlodipine 5mg with increased atenolol 50mg BID, continue lisinopril 20 mg - orthostatics Bilateral cervical radiculopathy - acutely worse from lack of movements due to parkinsons disease - trial decadron to reduce any inflammation present given acute nature - PT - appreciate neurology recommendations, nerve conduction studies as outpatient Parkinson's Disease - suspect above may be related to parkinson's - improvement with sinemet - appreciate neurology recommendations - speech eval, soft dental diet, aspiration precautions Constipation - resolved with miralax Incidental cystic thyroid nodule - TSH normal - O/P follow up but unlikely will ever be of clinical relevance Tongue numbness - chronic sialorrhea vs. oral thrush on examination, continue nystatin 7 days VTE Prophylaxis - lovenox 40 mg SQ daily Disposition - PT/OT/discharge planning. Medically stable for discharge as long as orthostatics are ok but unlikely unable to cope at home. OT recommended rehab on d/c. Resident Physician Supervision Note: I interviewed and examined the patient. Discussed with Dr. Crane and agree with findings and plan as documented in the note. Any exceptions or clarifications are listed here: None Documented By: Pedro Luis Sinclair feeling better. OK w going to rehab. arms feel better, saw walking w walker with nursing vitals noted nad, no pallor or icterus, slow and weak but reasonably steady gait w walker arm numbness and weakness - highly likely lower cervical radiculopathy. trial of steroids + PT (decadron started today), once out of rehab would strongly consider eval for decompression. if failing or continues to show progression then would consider surgical eval. parkinsons - just started on sinemet by neurology. to f/u neuro ~1wk re ? ongoing titration. since new start would watch for any neurocognitive side effects altered mental status - likely hypertensive urgency - improved. continue current BP regimen and titrate if needed otherwise as above stable for rehab
[2016-11-07] MEDS ORDERED: AMLODIPINE BESYLATE 5 MG TAB PO ONE (12:30)
[2016-11-07] MEDS ORDERED: DXM/4 PO (13:39)
[2016-11-07] MEDS ORDERED: SNM/25100 PO (13:39)
--- NOTE | 2016-11-07 13:43 | Discharge Instructions ---
Discharge Instructions Date of Service Nov 07, 2016. Admission Reason for Admission: Altered Mental Status;Headache;Hypertensive Urgenc Discharge Discharge Diagnosis / Problem: cervical radiculopathy; AMS from fortunately mild hypertensive urgency Discharge Goals Goal(s): Diagnostic testing, Therapeutic intervention Activity Recommendations Activity Level: Assistance Required Therapies: Physical Therapy, Occupational Therapy . Additional Information Patient informed of condition: Yes Advance Directives: No DNR: No Level of Care: Acute Rehab Communicable Disease: No Prognosis: Improving Current Hospital Diet Patient's current hospital diet: Regular Diet Discharge Diet Recommended Diet: Regular Diet Pending Studies Studies pending at discharge: no Physician Orders On Transfer Additional Orders: cervical radiculopathy - taper steroids as directed (8mg decadron for four more days, then reduce to 4mg daily for 5 days) -PT/OT directed towards this as well as to improve overall strength and mobility -consider evaluation for possible benefit of decompression therapy parkinsons -just started on sinemet by neurology - tolerating well, but watch for any neurocognitive side effects since this was a new start -follow up neurology ~1wk for re-eval and possible increase in dosing mild hypertensive urgency -presented to hospital with markedly uncontrolled hypertension and altered mental status. with hindsight, most likely dx is mild hypertensive urgency that has since resolved. if BP were to start to trend up, responded well to amlodipine here; at this point ongoing treatment does not appear to be required Laboratory Results Lipid Panel Test 11/02/16 09:30 Range/Units Triglycerides Level 46 0-150 mg/dl Cholesterol Level 157 0-200 mg/dl HDL Cholesterol 57 mg/dl Cholesterol/HDL Ratio 2.8 LDL Cholesterol, Calculated 91 mg/dl Medical Emergencies . Who to Call and When: Medical Emergencies: If at any time you feel your situation is an emergency, please call 911 immediately. . Non-Emergent Contact Non-Emergency issues call your: Primary Care Provider . . "Provider Documentation" section prepared by Pedro Luis Sinclair. . Core Measure Problem Core Measures: None
[2016-11-08] MEDS ORDERED: AMLODIPINE BESYLATE 5 MG TAB PO SCH (09:00)
[2016-11-08] MEDS ORDERED: POLYETHYLENE (MIRALAX) 17 GM PACK PO SCH (09:00)
--- NOTE | 2016-11-08 22:02 | Discharge Summary ---
Discharge Summary Date of Service Nov 08, 2016. 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 Orthostatic hypotension Consultations: Neurology Medication Reconciliation New Medications: Dexamethasone (Decadron) 4 Mg Tab 4 MG PO UD, #13 TAB 8mg x4 days start 11/08, then 4mg x 5 days, then stop Levodopa/Carbidopa (Sinemet 25MG/100MG) 1 Ea Tab 1 TAB PO TID, #30 TAB Continued Medications: Atenolol (Tenormin) 25 Mg Tab 25 MG PO BID, TAB Cyanocobalamin (Vitamin B-12) 1,000 Mcg Tab 1000 MCG PO DAILY, TAB Lisinopril (Prinivil) 20 Mg Tab 20 MG PO BID, 0 Refills Polyethylene Glycol 3350 (Miralax) 1 Pow Pow Unknown Dose PO DAILY Psyllium (Metamucil) 0.52 Gm Cap 5 CAP PO DAILY Tamsulosin Hcl (Flomax) 0.4 Mg Cap 0.4 MG PO DAILY, CAP 1/2 HOUR AFTER SUPPER [Col-rite] () 100 MG PO BID Hold for diarrhea Discharge Exam please see progress note from 11/07/2016 Hospital Course 76 yo with Parkinson's disease presents with acute progressive motor and sensory loss in his right upper extremity starting in his hand over the last week and nausea, vomiting and headache over the past day. Hypertensive encephalopathy - back to baseline Hypertensive Urgency - causing N&V and headache - Stopped amlodipine and placed back on usual home medications as appears to have resolved now in sinemet Bilateral cervical severe radiculopathy - continue dexamethasone as per prescription on discharge Parkinson's Disease - previous refused therapy but now doing extremely well and grateful for sinemet LLQ tenderness on examination with nausea and vomiting today - constipation now resolved with miralax, monitor BM Thyroid nodule incidental on CT c-spine - cystic on US, consider 12 month follow up US but unlikely to be of any clinical significance - TSH normal Tongue numbness - chronic sialorrhea VTE Prophylaxis - Lovenox 40 mg SQ daily, will be reconsidered at [facility] Disposition - Doing much better on Sinemet and really now needs inpatient rehabilitation. Bilateral cervical radiculopathy will be worked up by neurology as outpatient with nerve conduction studies and EMG - consider referral to orthopedics if testing is positive and patient not improving with physical therapy. Total Time Spent: Less than 30 minutes This includes examination of the patient, discharge planning, medication reconciliation, and communication with other providers. Discharge Instructions Please refer to the electronic Patient Visit Report (Discharge Instructions) for additional information. Follow-Up Follow up arranged at [facility] on [address] November 2016 [facility] [address], [address] [place] [address] Friday through Friday, from 8:30 am to 5:00 pm Additional Copies To [employer] islas; Ryan Al M.D. Resident Tracking Resident Involvement: Resident Care Provided Care Provided: Adult Hospital Medicine
== END 2016-11-07 16:30 | DRG 78 ==
LOC: ENRESERVDT → ENRESERVTM → C.EDB 13:36 → C.MED 17:20
PROVIDERS: ADMIT Internal Medicine; ATTEND Family Medicine
DX: I67.4 Hypertensive encephalopathy (principal); B37.0 Candidal stomatitis; G20 Parkinson's disease; I10 Essential (primary) hypertension; Z85.46 Personal history of malignant neoplasm of prostate; Z79.899 Other long term (current) drug therapy; I16.0 Hypertensive urgency; E04.1 Nontoxic single thyroid nodule; K59.00 Constipation, unspecified; M54.12 Radiculopathy, cervical region; I95.1 Orthostatic hypotension; I48.91 Unspecified atrial fibrillation; R20.0 Anesthesia of skin; R41.82 Altered mental status, unspecified; K21.9 Gastro-esophageal reflux disease without esophagitis; J45.909 Unspecified asthma, uncomplicated; E88.9 Metabolic disorder, unspecified

== ENCOUNTER 2017-02-22 06:55 | Emergency (ER) | payer OTHER ==
[~2017-02-22] VITALS: Ht 177.8 cm; Wt 61.6 kg
[~2017-02-22 06:55] MED LIST changes: +DXM/4 PO; +SNM/25100 PO; +TAMS0.4C38 PO; -TAMS0.4C59 PO
[2017-02-22 07:00] VITALS: TEMP 36.5; Ht 177.8 cm; Wt 61.6 kg
[2017-02-22] MEDS ORDERED: CARB25TA12 PO (07:27)
[2017-02-22 07:42] LABS: BASO % 0.5 %; BASO ABS # 0.04 K/uL (0-0.2); COMPLETE YES; EOS % 2.2 %; HEMATOCRIT 45.1 % (42-52); IG% 0.3 %; LYMPH % 12.1 %; LYMPH ABS # 0.95 K/uL (1.2-3.4); MEAN CELL VOLUME 93.4 fL (80-100); MEAN CORPUSCULAR HEMOGLOBIN 32.5 pg (25-34); MEAN CORPUSCULAR HGB CONC 34.8 g/dl (32-36); MEAN PLATELET VOLUME 8.5 fL (7.4-10.4); MONO % 9.7 %; NEUT % 75.2 %; PLATELET COUNT 363 K/uL (130-400); RED BLOOD COUNT 4.83 M/uL (4.7-6.1); WHITE BLOOD COUNT 7.85 K/uL (4.8-10.8)
[2017-02-22 07:48] LABS: URINE APPEARANCE CLEAR (CLEAR); URINE BILIRUBIN NEG (NEG); URINE COLOR YELLOW; URINE EPITHELIAL CELL AUTO 20-30 /lpf (0-5); URINE NITRITE NEG (NEG); URINE SPECIFIC GRAVITY 1.023 (1.000-1.030); UROBILINOGEN NEG (NEG); ZZUR CULT IF INDIC CLEAN CATCH NO
[2017-02-22 07:58] LABS: MANUAL MICROSCOPIC REQUIRED? NO; REVIEW REQ? NO
[2017-02-22 08:00] LABS: BUN/CREATININE RATIO 31.4 (10-20); CALCIUM 9.1 mg/dl (8.5-10.1); CREATININE 1.1 mg/dl (0.60-1.40); POTASSIUM 4.1 mmol/L (3.5-5.1)
--- NOTE | 2017-02-22 08:24 | DIAGNOSTIC IMAGING REPORT ---
CT SCAN OF THE ABDOMEN AND PELVIS WITHOUT CONTRAST CLINICAL HISTORY: Dysuria. History of kidney stones. COMPARISON STUDY: 09/30/2015 TECHNIQUE: CT scan of the abdomen and pelvis was performed from the lung bases to the proximal femurs. Images are reviewed in the axial, sagittal, and coronal planes. IV contrast was not administered for this examination. A dose lowering technique was utilized adhering to the principles of ALARA. CT DOSE: 688.21 mGy.cm FINDINGS: Lower chest: There is mild dependent atelectasis. Liver: The unenhanced liver is normal in size, contour, and attenuation. There is no intrahepatic biliary ductal dilatation. Gallbladder: There is a stone filled gallbladder. There is no ductal dilatation. Equivocal slight pericholecystic edema may be artifactual due to respiratory motion artifact. Spleen: Top normal in size Pancreas: Unremarkable. Adrenal glands: Unremarkable. Kidneys: There is a 4 mm upper pole left renal calculus. There is minimal fullness of the left renal collecting system. There is a 1 cm left renal hypodensity likely representing a cyst. No ureteral calculi are visualized. Bowel: There are no transition zones indicate bowel obstruction. The appendix appears normal. There is extensive sigmoid diverticulosis. No peridiverticular inflammatory changes are visualized. Peritoneum: There is no intraperitoneal free air or abdominal ascites. Vasculature: The abdominal aorta is normal in course and caliber. Adenopathy: None. Pelvic viscera: The prostate is enlarged. Skeletal structures: No destructive osseous lesions are seen. IMPRESSION: 1. Left-sided nephrolithiasis. Minimal fullness of the left renal collecting system. No ureteral calculi identified. 2. Stone filled gallbladder. Equivocal minimal pericholecystic edema may be artifactual due to respiratory motion artifact. Correlation with symptoms is recommended. 3. No evidence of bowel obstruction. No evidence of free air 4. Extensive diverticulosis. No evidence of acute diverticulitis 5. Prostatic enlargement Electronically signed by: Cheko Larson M.D. 02/22/2017 8:22 AM Dictated Date/Time: 02/22/2017 8:09 AM
[2017-02-22] MEDS ORDERED: CIPR-255 PO (08:41)
--- NOTE | 2017-02-22 08:42 | EMERGENCY ROOM VISIT NOTE ---
History First contact with patient: 07:03 Chief Complaint: URINARY SYMPTOMS Stated Complaint: JUAN, SICK Nursing Triage Summary: PT c/o painful and frequent urination since last night hx prostate problems History of Present Illness The patient is a 76 year old male who presents to the Emergency Room with complaints of urinary frequency and dysuria. The patient speaks very little Hebrew. His daughter accompanied him and is translating. The patient always has urinary frequency but over the past few days it has increased. Last night he started with dysuria overnight. He denies any hematuria, abdominal pain, nausea or vomiting. The patient denies any fever. The patient does have a history of radiation to his prostate. Review of Systems 6 system review was performed and was negative unless stated otherwise in history of present illness. Past Medical/Surgical History Medical Problems: (1) Altered mental status (2) Enlarged prostate (3) Headache (4) HTN (hypertension) (5) Hypertensive urgency (6) Muscle weakness of right upper extremity (7) Prostate cancer (8) Right upper extremity numbness Family History Patient reports no known family medical history. Social History Smoking Status: Never Smoker Marital Status: single Housing Status: lives with family Occupation Status: retired Current/Historical Medications Scheduled Atenolol (Tenormin), 25 MG PO BID Carbidopa/Levodopa (Sinemet 25MG/100MG), 1 TAB PO QID Ciprofloxacin Hcl (Cipro), 500 MG PO BID Cyanocobalamin (Vitamin B-12), 1,000 MCG PO DAILY Lisinopril (Prinivil), 20 MG PO BID Polyethylene Glycol 3350 (Miralax), Unknown Dose PO DAILY Psyllium (Metamucil), 5 CAP PO DAILY Tamsulosin Hcl (Flomax), 0.4 MG PO DAILY [Col-rite], 100 MG PO BID Physical Exam Vital Signs Date Time Temp Pulse Resp B/P (MAP) Pulse Ox O2 Delivery O2 Flow Rate FiO2 02/22/17 08:56 87 16 190/114 96 Room Air 02/22/17 07:00 36.5 97 20 150/98 94 Room Air Physical Exam GENERAL: 76-year-old male appears older than stated age. He is in no acute distress. MENTAL Status: Alert and oriented. MOUTH: Mucosa is moist NECK: Supple, no lymphadenopathy noted. No carotid bruits noted. LUNGS: Clear auscultation without wheezes rales or rhonchi. CARDIAC: Regular rate and rhythm without murmur. Pulses is full and equal throughout. BACK: No CVA tenderness noted. ABDOMEN: Positive bowel sounds all 4 quadrants. Soft, nontender to palpation without organomegaly or masses. EXTREMITIES: No cyanosis or edema noted. Medical Decision & Procedures ER Provider Diagnostic Interpretation: CT SCAN OF THE ABDOMEN AND PELVIS WITHOUT CONTRAST CLINICAL HISTORY: Dysuria. History of kidney stones. COMPARISON STUDY: 09/30/2015 TECHNIQUE: CT scan of the abdomen and pelvis was performed from the lung bases to the proximal femurs. Images are reviewed in the axial, sagittal, and coronal planes. IV contrast was not administered for this examination. A dose lowering technique was utilized adhering to the principles of ALARA. CT DOSE: 688.21 mGy.cm FINDINGS: Lower chest: There is mild dependent atelectasis. Liver: The unenhanced liver is normal in size, contour, and attenuation. There is no intrahepatic biliary ductal dilatation. Gallbladder: There is a stone filled gallbladder. There is no ductal dilatation. Equivocal slight pericholecystic edema may be artifactual due to respiratory motion artifact. Spleen: Top normal in size Pancreas: Unremarkable. Adrenal glands: Unremarkable. Kidneys: There is a 4 mm upper pole left renal calculus. There is minimal fullness of the left renal collecting system. There is a 1 cm left renal hypodensity likely representing a cyst. No ureteral calculi are visualized. Bowel: There are no transition zones indicate bowel obstruction. The appendix appears normal. There is extensive sigmoid diverticulosis. No peridiverticular inflammatory changes are visualized. Peritoneum: There is no intraperitoneal free air or abdominal ascites. Vasculature: The abdominal aorta is normal in course and caliber. Adenopathy: None. Pelvic viscera: The prostate is enlarged. Skeletal structures: No destructive osseous lesions are seen. IMPRESSION: 1. Left-sided nephrolithiasis. Minimal fullness of the left renal collecting system. No ureteral calculi identified. 2. Stone filled gallbladder. Equivocal minimal pericholecystic edema may be artifactual due to respiratory motion artifact. Correlation with symptoms is recommended. 3. No evidence of bowel obstruction. No evidence of free air 4. Extensive diverticulosis. No evidence of acute diverticulitis 5. Prostatic enlargement Electronically signed by: Cheko Larson M.D. 02/22/2017 8:22 AM Dictated Date/Time: 02/22/2017 8:09 AM Laboratory Results 02/22/17 07:30 Red Blood Count 4.83, Mean Corpuscular Volume 93.4, Mean Corpuscular Hemoglobin 32.5, Mean Corpuscular Hemoglobin Concent 34.8, Mean Platelet Volume 8.5, Neutrophils (%) (Auto) 75.2, Lymphocytes (%) (Auto) 12.1, Monocytes (%) (Auto) 9.7, Eosinophils (%) (Auto) 2.2, Basophils (%) (Auto) 0.5, Neutrophils # (Auto) 5.91, Lymphocytes # (Auto) 0.95, Monocytes # (Auto) 0.76, Eosinophils # (Auto) 0.17, Basophils # (Auto) 0.04 02/22/17 07:30 Test 02/22/17 07:22 02/22/17 07:30 Urine Color YELLOW Urine Appearance CLEAR (CLEAR) Urine pH 6.0 (4.5-7.5) Urine Specific [place] 1.023 (1.000-1.030) Urine Protein NEG (NEG) Urine Glucose (UA) NEG (NEG) Urine Ketones NEG (NEG) Urine Occult Blood NEG (NEG) Urine Nitrite NEG (NEG) Urine Bilirubin NEG (NEG) Urine Urobilinogen NEG (NEG) Urine Leukocyte Esterase TRACE (NEG) Urine WBC (Auto) 5-10 /hpf (0-5) Urine RBC (Auto) 0-4 /hpf (0-4) Urine Hyaline Casts (Auto) 1-5 /lpf (0-5) Urine Epithelial Cells (Auto) 20-30 /lpf (0-5) Urine Bacteria (Auto) NEG (NEG) White Blood Count 7.85 K/uL (4.8-10.8) Red Blood Count 4.83 M/uL (4.7-6.1) Hemoglobin 15.7 g/dL (14.0-18.0) Hematocrit 45.1 % (42-52) Mean Corpuscular Volume 93.4 fL (80-100) Mean Corpuscular Hemoglobin 32.5 pg (25-34) Mean Corpuscular Hemoglobin Concent 34.8 g/dl (32-36) Platelet Count 363 K/uL (130-400) Mean Platelet Volume 8.5 fL (7.4-10.4) Neutrophils (%) (Auto) 75.2 % Lymphocytes (%) (Auto) 12.1 % Monocytes (%) (Auto) 9.7 % Eosinophils (%) (Auto) 2.2 % Basophils (%) (Auto) 0.5 % Neutrophils # (Auto) 5.91 K/uL (1.4-6.5) Lymphocytes # (Auto) 0.95 K/uL (1.2-3.4) Monocytes # (Auto) 0.76 K/uL (0.11-0.59) Eosinophils # (Auto) 0.17 K/uL (0-0.5) Basophils # (Auto) 0.04 K/uL (0-0.2) RDW Standard Deviation 50.1 fL (36.4-46.3) RDW Coefficient of Variation 14.9 % (11.5-14.5) Immature Granulocyte % (Auto) 0.3 % Immature Granulocyte # (Auto) 0.02 K/uL (0.00-0.02) Anion Gap 5.0 mmol/L (3-11) Est Creatinine Clear Calc Drug Dose 49.0 ml/min Estimated GFR () 74.7 Estimated GFR (Non- 64.4 BUN/Creatinine Ratio 31.4 (10-20) Calcium Level 9.1 mg/dl (8.5-10.1) ED Course The patient was evaluated. EMR and medication list were reviewed. IV access was obtained. CBC and differential, renal profile and urinalysis was ordered. Labs are reviewed. BUN was elevated otherwise unremarkable. Urinalysis was normal. Therefore a CT for stone was ordered and interpreted by the radiologist as above without any acute findings which would account for the patient's dysuria. I discussed the case with Dr. Au who in dependently evaluated the patient and agreed with treatment plan. Bladder scan revealed 120 mL. The patient will be treated for prostatitis. I contacted a family member about treatment plan. The patient was discharged in stable condition. The patient's blood pressure was high when the nurse went to discharge him. He is not taking his morning medications therefore he was given his atenolol 25 mg by mouth and lisinopril 20 mg by mouth. Medical Decision Differential diagnosis include prostatitis, UTI, pyelonephritis, ureteral calculi Medication Reconcilliation Current Medication List: was personally reviewed by me Blood Pressure Screening Patient's blood pressure: Elevated blood pressure Blood pressure disposition: Elevated BP felt to be situational Impression Primary Impression: Prostatitis, acute Departure Information Dispostion Home / Self-Care Condition GOOD Prescriptions Ciprofloxacin Hcl (CIPRO) 500 Mg Tab 500 MG PO BID for 10 Days, #20 TAB Prov: Dorys Lovett, PAJose 02/22/17 Referrals Palmer Alicia III, CRNP (PCP) Forms HOME CARE DOCUMENTATION FORM, IMPORTANT VISIT INFORMATION Patient Instructions ED Prostatitis, [facility]
[2017-02-22 08:56] VITALS: BP 190/114; PULSE 87; O2SAT 96
[2017-02-22] MEDS ORDERED: LISINOPRIL 20 MG TAB PO STA (09:02)
--- NOTE | 2017-02-22 16:01 | EMERGENCY ROOM VISIT NOTE ---
ED Visit Note First contact with patient: 07:03 I have personally seen and evaluated the patient with the PA. I agree with the diagnosis and management decisions and have been personally involved in the case. Please see Betsey Lovett PA-C's notes for further details of the history, physical and visit.
== END 2017-02-22 09:36 | disposition home or self-care (01) ==
LOC: C.EDB 06:56
DX: N41.0 Acute prostatitis (principal); I10 Essential (primary) hypertension; Z85.46 Personal history of malignant neoplasm of prostate; Z92.3 Personal history of irradiation; Z79.899 Other long term (current) drug therapy

== ENCOUNTER → 2017-03-18 | Outpatient (CLI) | payer OTHER ==
[~2017-03-18] MED LIST changes: +CARB25TA12 PO; +CIPR-255 PO; -DXM/4 PO; -SNM/25100 PO
[2017-03-18 10:18] LABS: URINE APPEARANCE CLEAR (CLEAR); URINE BILIRUBIN NEG (NEG); URINE COLOR YELLOW; URINE NITRITE NEG (NEG); URINE PH 6.5 (4.5-7.5); URINE SPECIFIC GRAVITY 1.016 (1.000-1.030); UROBILINOGEN NEG (NEG)
[2017-03-18 10:21] LABS: MANUAL MICROSCOPIC REQUIRED? NO; REVIEW REQ? NO
== END | disposition home or self-care (01) ==
LOC: C.LAB 09:10
PROVIDERS: ATTEND Nurse Practitioner Family
DX: R41.82 Altered mental status, unspecified (principal)